=== PATIENT | male | born 1995 | race Caucasian/White ===

== ENCOUNTER 2018-12-17 04:49 | Emergency (ER) | payer OTHER ==
[2018-12-17] MEDS ORDERED: NAPROXEN 250 MG TABLET PO STA (05:13)
--- NOTE | 2018-12-17 05:14 | ED Physician Documentation ---
PD HPI FOCAL NEURO - Stated complaint Stated Complaint: NUMBNESS/TINGLING L LEG - Chief complaint Chief Complaint: Ext Problem - History obtained from History obtained from: Patient - History of Present Illness Timing - onset: How many hours ago (noted several hours ago - having numbness in back of left thigh. No noted injury. He had been working out as usual earlier in the evening which does include weight training and also bicycle and elliptical for cardiovascular. He states he did not work out any different than usual. He denied any back pain. He was [place] in [place] and noted onset of feeling his heart rate going fast and then feeling short of breath. He felt like the numbness in his back of his thigh worsened at that point and he got concerned and called EMS. En route he says his heart rate is doing better and he is not having any trouble breathing. He still has the numbness feeling in the back of the left thigh only.) Timing - duration: Hours Timing - details: Abrupt onset, Still present Severity of deficit: Mild Weakness: No: Arm, Leg Numbness: Leg (posterior upper thigh only), Left. No: Face, Arm Associated symptoms: Other (feeling of heart racing and dyspnea about an hour [employer]. Noted left posterior thigh numbness without provocation/injury to the area. Had been working out earlier without change in exercises nor any notable inury. He does do stationary bicycle and eliptical machines.). No: Headache, Nausea / vomiting Review of Systems Constitutional: denies: Fever, Chills Nose: denies: Rhinorrhea / runny nose, Congestion Throat: denies: Sore throat Cardiac: reports: Palpitations. denies: Chest pain / pressure Respiratory: denies: Cough GI: denies: Abdominal Pain, Nausea, Vomiting, Diarrhea Skin: denies: Rash, Lesions Musculoskeletal: denies: Back pain PD PAST MEDICAL HISTORY - Past Medical History Cardiovascular: None Respiratory: None Neuro: None Endocrine/Autoimmune: None - Present Medications Home Medications: Ambulatory Orders Medication Instructions Recorded Confirmed Naproxen 500 mg PO BID #20 tablet 12/17/18 - Allergies Allergies/Adverse Reactions: Allergies Allergy/AdvReac Type Severity Reaction Status Date / Time No Known Drug Allergies Allergy Verified 12/17/18 05:02 PD ED PE NORMAL - Vitals Vital signs reviewed: Yes - General General: Alert and oriented X 3, No acute distress, Well developed/nourished - HEENT HEENT: Moist mucous membranes, Pharynx benign - Neck Neck: Supple, no meningeal sign, No adenopathy - Cardiac Cardiac: RRR, No murmur - Respiratory Respiratory: Clear bilaterally - Abdomen Abdomen: Soft, Non tender - Back Back: No CVA TTP, No spinal TTP - Derm Derm: Normal color, Warm and dry, No rash - Extremities Extremities: Normal ROM s pain, No edema, No calf tenderness / cord - Neuro Neuro: Alert and oriented X 3, No motor deficit, Normal speech, Other (There is decreased sensation to light touch and pinprick but not to deep pressure in the posterior aspect of the upper thigh. He does not have any tenderness at the ischio ramus. There is no tenderness at the SI joint nor in the back. He has good motor exam of the leg. He has good pulses color and capillary refill. There is no swelling nor tenderness in the calf or popliteal area. The right thigh is normal.) Results - Vitals Vitals: Vital Signs - 24 hr 12/17/18 05:02 Temperature 36.8 C Heart Rate 81 Respiratory 18 Rate Blood Pressure 164/95 H O2 Saturation 100 Oxygen O2 Source Room air - Labs Labs: Laboratory Tests 12/17/18 12/17/18 05:30 05:30 WBC 7.6 RBC 4.68 L Hgb 14.3 Hct 42.7 MCV 91.2 MCH 30.5 MCHC 33.5 RDW 12.8 Plt Count 263 MPV 9.3 Neut # (Auto) 3.4 Lymph # (Auto) 3.2 [place] # (Auto) 0.9 Eos # (Auto) 0.0 Baso # (Auto) 0.0 Absolute Nucleated RBC 0.01 Nucleated RBC % 0.1 Sodium 140 Potassium 3.6 Chloride 105 Carbon Dioxide 28 Anion Gap 7.0 BUN 12 Creatinine 1.0 Estimated GFR (MDRD) 92 Glucose 130 H Calcium 9.2 Magnesium 1.9 Total Bilirubin 0.6 AST 23 ALT 15 Alkaline Phosphatase 89 Total Creatine Kinase 121 Total Protein 7.6 Albumin 4.1 Globulin 3.5 Albumin/Globulin Ratio 1.2 Lipase 30 PD MEDICAL DECISION MAKING - ED course Complexity details: considered differential (The numbness in the area of the back of the thigh seems likely to be us local nerve irritation. He is not tender at the issue ramus. He does work on elliptical and exercise bike and had done so earlier today. I presume he may have just some pressure of the nerve. It does not sound radicular without any back pain or radiation of it down lower in the leg. The chest pain and dyspnea he had otherwise sound likely panic or anxiety. Basic labs and EKG are okay.), d/w patient Departure - Departure Disposition: 01 Home, Self Care Clinical Impression: Thigh numbness Condition: Stable Record reviewed to determine appropriate education?: Yes Prescriptions: Naproxen 500 mg PO BID #20 tablet Comments: Your EKG and heart rhythm are normal. Your basic electrolytes and blood count are good. The numb area in the back of the thigh I presume is a local nerve irritation and should improve with time. Consider some anti-inflammatory such as naproxen twice daily for the next several days. Recheck if not improved over the next several days or so.
[2018-12-17 05:38] LABS: BASOPHILS % (AUTO) 0.6 %; EOSINOPHILS % (AUTO) 0.6 %; HGB - HEMOGLOBIN 14.3 g/dL (14.0-18.0); LYMPHOCYTES # (AUTO) 3.2 10^3/uL (1.5-3.5); LYMPHOCYTES % (AUTO) 42.2 %; MEAN CORPUSCULAR HEMOGLOBIN 30.5 pg (27.0-31.0); MEAN CORPUSCULAR HGB CONC 33.5 g/dL (32.0-36.0); MEAN CORPUSCULAR VOLUME 91.2 fL (80.0-94.0); MEAN PLATELET VOLUME 9.3 fL (7.4-11.4); MONOCYTES # (AUTO) 0.9 10^3/uL (0.0-1.0); NEUTROPHILS # (AUTO) 3.4 10^3/uL (1.5-6.6); NEUTROPHILS % (AUTO) 44.6 %; PLT - PLATELET COUNT 263 10^3/uL (130-450); RED BLOOD COUNT 4.68 10^6/uL (4.70-6.10); RED CELL DISTRIBUTION WIDTH 12.8 % (12.0-15.0); WHITE BLOOD COUNT 7.6 x10^3/uL (4.8-10.8)
[2018-12-17 05:50] LABS: ALBUMIN 4.1 g/dL (3.2-5.5); ALBUMIN/GLOBULIN RATIO 1.2 (1.0-2.2); BILIRUBIN,TOTAL 0.6 mg/dL (0.2-1.0); CALCIUM 9.2 mg/dL (8.5-10.3); MAGNESIUM 1.9 mg/dL (1.7-2.8); TOTAL PROTEIN 7.6 g/dL (6.7-8.2)
[2018-12-17 06:07] VITALS: BP 126/60
== END 2018-12-17 06:06 | disposition home or self-care (01) ==
LOC: ED 04:49
DX: R20.0 Anesthesia of skin (principal)
CPT/HCPCS: 36415; 80053; 82550; 83690; 83735; 85025; 93005; 99283; A9270

== ENCOUNTER 2019-05-23 05:22 | Emergency (ER) | payer OTHER ==
[2019-05-23] MEDS ORDERED: ASPIRIN CHEW 81 MG TABLET PO STA (05:45)
--- NOTE | 2019-05-23 05:48 | ED Physician Documentation ---
History of Present Illness - Stated complaint Stated Complaint: TIGHT CHEST/JAW - Chief complaint Chief Complaint: Cardiac - Additonal information Additional information: This is a 23-year-old male with a history of panic attacks, who presents with chest pain. Patient states he began having chest pain which is over his left chest at around 3 AM as he was going to bed, this radiated towards his left arm and up to his left jaw. It became moderate in severity, and now it is fading back down to mild in severity. He has had similar chest pain and was diagnosed with panic attacks in the past, but this is more persistent and more severe than in the past. He denies any leg swelling or redness, no history of blood clots. No cough, no fever, no hemoptysis. He did vomit once. He denies any known cardiac problems. No history of hypertension or diabetes. Review of Systems Constitutional: denies: Fever Nose: denies: Rhinorrhea / runny nose Cardiac: reports: Chest pain / pressure Respiratory: reports: Dyspnea. denies: Hemoptysis GI: reports: Vomiting. denies: Abdominal Pain : denies: Dysuria Skin: denies: Rash Neurologic: denies: Generalized weakness Psychiatric: reports: Anxiety Immunocompromised: denies: Immunocompromised PD PAST MEDICAL HISTORY - Past Medical History Past Medical History: Yes Cardiovascular: None Respiratory: None Neuro: None Endocrine/Autoimmune: None GI: None : None HEENT: None Psych: Anxiety Musculoskeletal: None Derm: None - Past Surgical History Past Surgical History: No - Present Medications Home Medications: Ambulatory Orders Medication Instructions Recorded Confirmed Naproxen 500 mg PO BID #20 tablet 12/17/18 - Allergies Allergies/Adverse Reactions: Allergies Allergy/AdvReac Type Severity Reaction Status Date / Time No Known Drug Allergies Allergy Verified 05/23/19 05:35 - Social History Does the pt smoke?: Yes Smoking Status: Current every day smoker Does the pt drink ETOH?: Yes Does the pt have substance abuse?: No - Immunizations Immunizations are current?: Yes - POLST Patient has POLST: No PD ED PE NORMAL - Vitals Vital signs reviewed: Yes - General General: Alert and oriented X 3, No acute distress - HEENT HEENT: PERRL - Neck Neck: Supple, no meningeal sign - Cardiac Cardiac: RRR, No murmur - Respiratory Respiratory: Clear bilaterally - Abdomen Abdomen: Normal bowel sounds, Soft, Non tender, Non distended - Derm Derm: Warm and dry - Extremities Extremities: No deformity - Neuro Neuro: Alert and oriented X 3 - Psych Psych: Normal mood, Normal affect Results - Vitals Vitals: Vital Signs - 24 hr 05/23/19 05/23/19 05/23/19 05:33 05:38 05:44 Temperature 36.7 C Heart Rate 73 68 64 Respiratory 17 16 18 Rate Blood Pressure 153/85 H 135/85 H O2 Saturation 100 99 97 05/23/19 05/23/19 06:25 06:46 Temperature Heart Rate 57 L 57 L Respiratory 16 16 Rate Blood Pressure 118/63 114/63 O2 Saturation 97 98 Oxygen O2 Source Room air - EKG (time done) 5:32 Other comments: Other comments (Rate 63, rhythm sinus, there is no ST segment elevation or depression, no abnormal T wave changes. [place] is within normal limits, intervals are unremarkable.) - Labs Labs: Laboratory Tests 05/23/19 05/23/19 05/23/19 05:50 05:50 05:50 WBC 7.7 RBC 4.33 L Hgb 13.2 L Hct 39.3 L MCV 90.8 MCH 30.5 MCHC 33.6 RDW 12.0 Plt Count 277 MPV 11.0 Neut # (Auto) 2.8 Lymph # (Auto) 3.9 H [place] # (Auto) 0.9 Eos # (Auto) 0.1 Baso # (Auto) 0.0 Absolute Nucleated RBC 0.00 Nucleated RBC % 0.0 Sodium 141 Potassium 3.6 Chloride 108 Carbon Dioxide 25 Anion Gap 8.0 BUN 15 Creatinine 0.8 Estimated GFR (MDRD) 119 Glucose 106 H Calcium 8.9 Total Bilirubin 0.4 AST 24 ALT 19 Alkaline Phosphatase 64 Troponin I High Sens 5.7 Total Protein 6.9 Albumin 4.0 Globulin 2.9 Albumin/Globulin Ratio 1.4 Lipase 28 - Rads (name of study) CXR Radiology: Other (No acute cardiopulmonary abnormality) PD MEDICAL DECISION MAKING - ED course Complexity details: considered differential (Anxiety, ACS, pneumonia, thorax, pleural effusion, musculoskeletal pain, pericarditis, myocarditis) ED course: On arrival patient is well-appearing, his exam is unremarkable. His vital signs are also unremarkable. EKG shows no signs of ischemia or dysrhythmia. Labs are unremarkable, he has a negative high-sensitivity troponin. It is now been over 3 hours since the onset of his symptoms, and he is extremely low risk for ACS (HEART SCORE = 2), I think a single high-sensitivity troponin is sufficient to day. His CXR is unremarkable. His symptoms have improved. No signs of pericarditis on his EKG, and his history is also inconsistent with pericarditis. I discussed the results of work-up with the patient, explaining that I do not see an emergent cause of his chest pain, and I am not certain what the cause is at this time. I recommended he follow closely with his primary care provider. If he develops any worsening pain or new symptoms he will return to the emergency department. Departure - Departure Disposition: 01 Home, Self Care Clinical Impression: Chest pain Qualifiers: Chest pain type: unspecified Qualified Code(s): R07.9 - Chest pain, unspecified Condition: Good Instructions: ED Chest Pain Atypical Unkn Cause Follow-Up: Your,PCP [Other] (For follow-up on symptoms within 1 week.) Comments: You were seen today for chest pain, your EKG and labs are reassuring, your chest x-ray does not show an obvious cause of your symptoms. You may take Tylenol ibuprofen for discomfort, please follow-up with your primary care provider as soon as possible. If you are developing worsening pain, shortness of breath, coughing up blood, or any other concerning symptoms please return to the emergency department. Discharge Date/Time: 05/23/19 06:47
[2019-05-23 06:01] LABS: BASOPHILS % (AUTO) 0.5 %; EOSINOPHILS # (AUTO) 0.1 10^3/uL (0.0-0.7); EOSINOPHILS % (AUTO) 1.3 %; HGB - HEMOGLOBIN 13.2 g/dL (14.0-18.0); LYMPHOCYTES # (AUTO) 3.9 10^3/uL (1.5-3.5); LYMPHOCYTES % (AUTO) 50.6 %; MEAN CORPUSCULAR HEMOGLOBIN 30.5 pg (27.0-31.0); MEAN CORPUSCULAR HGB CONC 33.6 g/dL (32.0-36.0); MEAN CORPUSCULAR VOLUME 90.8 fL (80.0-94.0); MONOCYTES # (AUTO) 0.9 10^3/uL (0.0-1.0); MONOCYTES % (AUTO) 11.1 %; NEUTROPHILS # (AUTO) 2.8 10^3/uL (1.5-6.6); NEUTROPHILS % (AUTO) 36.1 %; PLT - PLATELET COUNT 277 10^3/uL (130-450); RED BLOOD COUNT 4.33 10^6/uL (4.70-6.10); WHITE BLOOD COUNT 7.7 x10^3/uL (4.8-10.8)
[2019-05-23 06:12] LABS: ALBUMIN/GLOBULIN RATIO 1.4 (1.0-2.2); BILIRUBIN,TOTAL 0.4 mg/dL (0.2-1.0); CALCIUM 8.9 mg/dL (8.5-10.3); CREATININE 0.8 mg/dL (0.6-1.2); TOTAL PROTEIN 6.9 g/dL (6.7-8.2)
--- NOTE | 2019-05-23 06:28 | XRAY Report ---
Reason: Left sided chest pain Procedure Date: 05/23/2019 Accession Number: [id number] / [id number] Procedure: XR - Chest 2 View X-Ray CPT Code: 57042 FULL RESULT: EXAM: CHEST RADIOGRAPHY EXAM DATE: 05/23/2019 06:03 AM. CLINICAL HISTORY: Left sided chest pain. COMPARISON: None. TECHNIQUE: 2 views. FINDINGS: Lungs/Pleura: Small lung volume. No focal opacities evident. No pleural effusion. No pneumothorax. Normal volumes. Mediastinum: Heart and mediastinal contours are unremarkable. Other: None. IMPRESSION: Small lung volumes. No acute cardiopulmonary abnormality demonstrated. RADIA
[2019-05-23 06:47] VITALS: BP 114/63
== END 2019-05-23 06:47 | disposition home or self-care (01) ==
LOC: ED 05:22
DX: R07.9 Chest pain, unspecified (principal); F17.200 Nicotine dependence, unspecified, uncomplicated
CPT/HCPCS: 36415; 71046; 80053; 83690; 84484; 85025; 93005; 99284; A9270

== ENCOUNTER 2019-06-10 05:57 | Emergency (ER) | payer OTHER ==
--- NOTE | 2019-06-10 07:09 | ED Physician Documentation ---
History of Present Illness - Stated complaint Stated Complaint: PANIC ATTACKS/ SWOLLEN THROAT - Chief complaint Chief Complaint: MHE - Additonal information Additional information: This is a 23M with a history of possible PTSD, who presents with panic attacks. Patient states that he has had episodes described as panic attacks for several months. He typically will feel some tingling down his left arm, that his heart is racing, and severe anxiety. This occurred today around 2 AM after he got up to use the bathroom and saw that his urine was slightly cloudy. He denies any dysuria or hematuria. He states his urine was pale clear to light yellow, and slightly turbid. He denies any abdominal pain nausea, or concern for STI. Something about seeing his urine being cloudy triggered a panic attack in him and he has had continued anxiety until his visit this morning. He denies any chest pain or shortness of breath. He does have a mild sore throat, no fever. Review of Systems Constitutional: denies: Fever Cardiac: denies: Chest pain / pressure GI: reports: Nausea : denies: Dysuria Psychiatric: reports: Anxiety PD PAST MEDICAL HISTORY - Past Medical History Past Medical History: Yes Cardiovascular: None Respiratory: None Neuro: None Endocrine/Autoimmune: None GI: None : None HEENT: None Psych: Anxiety, Panic attacks Musculoskeletal: None Derm: None - Past Surgical History Past Surgical History: Yes - Present Medications Home Medications: Ambulatory Orders Medication Instructions Recorded Confirmed hydrOXYzine pamoate [Hydroxyzine 25 mg PO BID PRN #12 capsule 06/10/19 Pamoate] - Allergies Allergies/Adverse Reactions: Allergies Allergy/AdvReac Type Severity Reaction Status Date / Time No Known Drug Allergies Allergy Verified 06/10/19 06:06 - Social History Does the pt smoke?: Yes Smoking Status: Current every day smoker Does the pt drink ETOH?: Yes Does the pt have substance abuse?: No - Immunizations Immunizations are current?: Yes - POLST Patient has POLST: No PD ED PE NORMAL - Vitals Vital signs reviewed: Yes - General General: Alert and oriented X 3 - HEENT HEENT: Other (Mild posterior pharynx erythema) - Neck Neck: Supple, no meningeal sign - Cardiac Cardiac: RRR, No murmur - Respiratory Respiratory: Clear bilaterally - Abdomen Abdomen: Soft, Non tender, Non distended - Derm Derm: Warm and dry - Extremities Extremities: No deformity - Neuro Neuro: Alert and oriented X 3, 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 Intervals within normal limits. [place] normal.) - Labs Labs: Laboratory Tests 06/10/19 06/10/19 06:53 06:54 Urine Color YELLOW Urine Clarity CLEAR Urine pH 6.5 Ur Specific [place] <=1.005 Urine Protein NEGATIVE Urine Glucose (UA) NEGATIVE Urine Ketones NEGATIVE Urine Occult Blood NEGATIVE Urine Nitrite NEGATIVE Urine Bilirubin NEGATIVE Urine Urobilinogen 0.2 (NORMAL) Ur Leukocyte Esterase NEGATIVE Ur Microscopic Review NOT INDICATED Urine Culture Comments NOT INDICATED Urine Opiates Screen NEGATIVE Ur Oxycodone Screen NEGATIVE Urine Methadone Screen NEGATIVE Ur Propoxyphene Screen NEGATIVE Ur Barbiturates Screen NEGATIVE Ur Tricyclics Screen NEGATIVE Ur Phencyclidine Scrn NEGATIVE Ur Amphetamine Screen NEGATIVE U Methamphetamines Scrn NEGATIVE U Benzodiazepines Scrn NEGATIVE Urine Cocaine Screen NEGATIVE U Cannabinoids Screen NEGATIVE Group A Strep Rapid Negative PD MEDICAL DECISION MAKING - ED course Complexity details: considered differential (dysrhythmia, panic attack, anxiety, PTSD, UTI, STI) ED course: On exam patient is mildly hypertensive, vital signs otherwise unremarkable. He is well-appearing and calm during my examination. UA negative for infection. Utox negative. Rapid strep negative, patient does have signs of mild pharyngitis that is likely viral. EKG is unremarkable. Patient symptoms have resolved. They are consistent with a stress reaction/panic attacks. I reviewed with him suggested follow-up, as well as strict return precautions, and symptoms that would be worrisome for another process. I prescribed him hydroxyzine to be used as only if relaxation techniques are not effective, and patient was discharged with follow-up plan with the mental health professional. He does have an appointment scheduled already, but will try to get this moved up sooner. Departure - Departure Disposition: 01 Home, Self Care Clinical Impression: Stress reaction Condition: Good Instructions: ED Stress React Follow-Up: Your,PCP [Other] Prescriptions: hydrOXYzine pamoate [Hydroxyzine Pamoate] 25 mg PO BID PRN #12 capsule PRN Reason: Anxiety Comments: You were seen today for a possible panic attack. Please follow up with your PCP and a mental health professional as soon as possible. If you have feelings of anxiety that are not controlled with deep breathing exercises/mindfulness, you may try the hydroxyzine which has been prescribed. This medication can be sedating, do not combine it with other sedating medications. If you develop new or worsening chest pain, shortness of breath, abdominal pain, or other concerning symptoms, return to the emergency department.
[2019-06-10 07:13] LABS: MUDS CUTOFF CONCENTRATIONS CUTOFF CONC BELOW:
[2019-06-10 07:15] LABS: BILIRUBIN,URINE NEGATIVE (NEGATIVE); GLUCOSE, URINE (UA) NEGATIVE (NEGATIVE); KETONES,URINE (UA) NEGATIVE (NEGATIVE); LEUKOCYTE ESTERASE, URINE NEGATIVE (NEGATIVE); NITRITE,URINE NEGATIVE (NEGATIVE); OCCULT BLOOD,URINE NEGATIVE (NEGATIVE); PH,URINE 6.5 PH (5.0-7.5); PROTEIN,URINE NEGATIVE (NEGATIVE); UROBILINOGEN,URINE 0.2 (NORMAL) E.U./dL (NORMAL)
[2019-06-10 07:22] LABS: CLARITY,URINE CLEAR (CLEAR)
[2019-06-10 07:25] LABS: AMPHETAMINE SCREEN,URINE NEGATIVE (NEGATIVE); BENZODIAZEPINES SCREEN, URINE NEGATIVE (NEGATIVE); COCAINE SCREEN URINE NEGATIVE (NEGATIVE); METHADONE SCREEN, URINE NEGATIVE (NEGATIVE); METHAMPHETAMINES SCREEN, URINE NEGATIVE (NEGATIVE); OPIATE SCREEN, URINE NEGATIVE (NEGATIVE); OXYCODONE SCREEN, URINE NEGATIVE (NEGATIVE); PROPOXYPHENE SCREEN, URINE NEGATIVE (NEGATIVE); TRICYCLIC ANTIDEPRESSANT,URINE NEGATIVE (NEGATIVE)
[2019-06-10 08:04] VITALS: BP 144/69
== END 2019-06-10 08:16 | disposition home or self-care (01) ==
LOC: ED 05:57
DX: F43.0 Acute stress reaction (principal); J02.9 Acute pharyngitis, unspecified; F17.200 Nicotine dependence, unspecified, uncomplicated
CPT/HCPCS: 80306; 81001; 81003; 87070; 87086; 87430; 93005; 99283

== ENCOUNTER 2019-06-11 07:34 | Outpatient (CLI) | payer OTHER | END 2019-06-11 07:35 | disposition critical access hospital (66) | LOC: EMS 07:34 | PROVIDERS: ATTEND Surgery | DX: R07.9 Chest pain, unspecified (principal); R20.0 Anesthesia of skin; R06.02 Shortness of breath | CPT/HCPCS: A0425; A0429 ==

== ENCOUNTER 2019-06-11 08:04 | Emergency (ER) | payer OTHER ==
--- NOTE | 2019-06-11 08:41 | ED Physician Documentation ---
History of Present Illness - Stated complaint Stated Complaint: CP/ SOA, ANXIETY - Chief complaint Chief Complaint: Cardiac - Additonal information Additional information: This is a 23-year-old male who is known to me, I saw the patient yesterday. Patient has had panic attacks for weeks, he states that they will occur intermittently when he is alone at home and wakes up from sleep. He has some tingling on his left side, and he sometimes has chest pain or feeling of palpitations. This morning several hours prior to arrival he began having tingling in his left arm and leg and some mild chest pain. This is resolved but he states that he feels like he is about to have another panic attack now. He denies shortness of breath, fever. He has had lab work including CMP, CBC, troponin in the past and these have been unrevealing. He denies depression, he denies any suicidal ideation, denies substance abuse. He had a negative U tox and UA on his last visit yesterday. Review of Systems Constitutional: denies: Fever Eyes: denies: Loss of vision Cardiac: reports: Chest pain / pressure Respiratory: denies: Dyspnea GI: denies: Abdominal Pain Neurologic: denies: Generalized weakness Psychiatric: reports: Anxiety PD PAST MEDICAL HISTORY - Past Medical History Cardiovascular: None Respiratory: None Neuro: None Endocrine/Autoimmune: None GI: None : None HEENT: None Psych: Anxiety, Panic attacks Musculoskeletal: None Derm: None - Past Surgical History Past Surgical History: Yes - Present Medications Home Medications: Ambulatory Orders Medication Instructions Recorded Confirmed hydrOXYzine pamoate [Hydroxyzine 25 mg PO BID PRN #12 capsule 06/10/19 Pamoate] - Allergies Allergies/Adverse Reactions: Allergies Allergy/AdvReac Type Severity Reaction Status Date / Time No Known Drug Allergies Allergy Verified 06/10/19 06:06 - Social History Does the pt smoke?: Yes Smoking Status: Current every day smoker Does the pt drink ETOH?: Yes Does the pt have substance abuse?: No - Immunizations Immunizations are current?: Yes - POLST Patient has POLST: No PD ED PE NORMAL - Vitals Vital signs reviewed: Yes - General General: Alert and oriented X 3, No acute distress - HEENT HEENT: PERRL - Neck Neck: Supple, no meningeal sign - Cardiac Cardiac: RRR, No murmur - Respiratory Respiratory: Clear bilaterally - Abdomen Abdomen: Soft, Non distended - Derm Derm: Warm and dry - Extremities Extremities: No deformity - Neuro Neuro: Alert and oriented X 3, 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, No motor deficit, No sensory deficit, Normal speech - Psych Psych: Normal mood, Normal affect Results - Vitals Vitals: Vital Signs - 24 hr 06/11/19 06/11/19 06/11/19 08:05 08:17 09:00 Temperature 36.3 C L 36.3 C L Heart Rate 61 57 L 61 Respiratory 16 16 16 Rate Blood Pressure 140/76 H 140/76 H 112/69 O2 Saturation 97 98 97 06/11/19 06/11/19 09:54 09:57 Temperature 36.7 C Heart Rate 84 58 L Respiratory 16 16 Rate Blood Pressure 128/76 125/73 O2 Saturation 96 98 Oxygen O2 Source Room air - EKG (time done) 8:24 Other comments: Other comments (Rate 56, rhythm sinus, there is no ST segment elevation or depression, no abnormal T wave inversions, intervals are within normal limits, QTC 387.) - Labs Labs: Laboratory Tests 06/11/19 06/11/19 08:50 08:50 Sodium 140 Potassium 3.5 Chloride 108 Carbon Dioxide 23 Anion Gap 9.0 BUN 12 Creatinine 0.8 Estimated GFR (MDRD) 119 Glucose 96 Calcium 9.3 TSH 1.51 PD MEDICAL DECISION MAKING - ED course Complexity details: considered differential (Thyroid disturbance, electrolyte abnormality, panic attack, stress reaction, ACS, dysrhythmia) ED course: Patient presents with a recurrent of stress/panic attack symptoms. Past work-ups including CBC, electrolytes, troponin, EKGs, UA, urine drug screen, have been unrevealing for another cause of his symptoms. EKG today is unremarkable and unchanged from prior. Given his age, risk factors, and EKG, ACS extremely unlikely. TSH is within normal limits, electrolytes are unremarkable today. His neuro exam is normal with no signs of deficit, and his paresthesias have resolved at this time. He tried 1 dose of hydroxyzine, he did have some improvement with this. I consulted social work in an attempt to get him more urgent follow-up, given his return to the emergency department multiple times for this problem and [place]. [place] precautions were reviewed with the patient, as well as calling again today to attempt to arrange mental health follow up, he agreed with this plan and he was discharged home. Departure - Departure Disposition: 01 Home, Self Care Clinical Impression: Paresthesia, Anxiety Condition: Good Comments: You were seen today for tingling on your left side as well as some chest discomfort, your labs and EKG are reassuring today. It does sound like you may be having panic attacks. You may try the hydroxizine prescribed yesterday, and please call the base today to discuss your multiple emergency department visits and the need for prompt follow-up with them. If you develop new or worsening symptoms such as increasing chest pain, shortness of breath, or other concerning symptoms please return to the emergency department. Discharge Date/Time: 06/11/19 10:13
[2019-06-11] MEDS ORDERED: hydrOXYzine PAMOATE 25 MG CAPSULE PO STA (09:24)
[2019-06-11 09:29] LABS: CALCIUM 9.3 mg/dL (8.5-10.3); CREATININE 0.8 mg/dL (0.6-1.2)
[2019-06-11 09:58] VITALS: BP 125/73
== END 2019-06-11 10:13 | disposition home or self-care (01) ==
LOC: EDUNIT# → ED 08:04
DX: F41.9 Anxiety disorder, unspecified (principal); R20.2 Paresthesia of skin; R07.9 Chest pain, unspecified; F17.200 Nicotine dependence, unspecified, uncomplicated
CPT/HCPCS: 36415; 80048; 84443; 93005; 99283; A9270

== ENCOUNTER 2019-08-04 15:37 | Emergency (ER) | payer OTHER ==
[2019-08-04 16:31] LABS: BASOPHILS % (AUTO) 0.3 %; EOSINOPHILS % (AUTO) 0.2 %; HGB - HEMOGLOBIN 14.3 g/dL (14.0-18.0); LYMPHOCYTES # (AUTO) 2.1 10^3/uL (1.5-3.5); LYMPHOCYTES % (AUTO) 18.3 %; MEAN CORPUSCULAR HEMOGLOBIN 29.8 pg (27.0-31.0); MEAN CORPUSCULAR HGB CONC 32.9 g/dL (32.0-36.0); MEAN CORPUSCULAR VOLUME 90.6 fL (80.0-94.0); MONOCYTES # (AUTO) 0.7 10^3/uL (0.0-1.0); MONOCYTES % (AUTO) 6.2 %; NEUTROPHILS # (AUTO) 8.7 10^3/uL (1.5-6.6); NEUTROPHILS % (AUTO) 74.6 %; PLT - PLATELET COUNT 302 10^3/uL (130-450); RED CELL DISTRIBUTION WIDTH 12.3 % (12.0-15.0); WHITE BLOOD COUNT 11.6 x10^3/uL (4.8-10.8)
[2019-08-04 16:42] LABS: ALBUMIN 4.3 g/dL (3.2-5.5); ALBUMIN/GLOBULIN RATIO 1.2 (1.0-2.2); BILIRUBIN,TOTAL 0.9 mg/dL (0.2-1.0); CALCIUM 9.3 mg/dL (8.5-10.3); CREATININE 0.8 mg/dL (0.6-1.2); TOTAL PROTEIN 7.8 g/dL (6.7-8.2)
[2019-08-04 16:59] LABS: BILIRUBIN,URINE NEGATIVE (NEGATIVE); GLUCOSE, URINE (UA) NEGATIVE (NEGATIVE); KETONES,URINE (UA) NEGATIVE (NEGATIVE); LEUKOCYTE ESTERASE, URINE NEGATIVE (NEGATIVE); NITRITE,URINE NEGATIVE (NEGATIVE); OCCULT BLOOD,URINE NEGATIVE (NEGATIVE); PROTEIN,URINE NEGATIVE (NEGATIVE); UROBILINOGEN,URINE 0.2 (NORMAL) E.U./dL (NORMAL)
[2019-08-04 17:05] LABS: CLARITY,URINE CLEAR (CLEAR)
[2019-08-04] MEDS ORDERED: DICYCLOMINE 10 MG CAPSULE PO STA (17:32)
[2019-08-04] MEDS ORDERED: ONDANSETRON ODT 4 MG TABLET TL STA (17:32)
[2019-08-04] MEDS ORDERED: LIDOCAINE VISCOUS 2% 15 ML UDC MM STA (17:33)
[2019-08-04] MEDS ORDERED: MAG HYDROX/AL HYDROX/SIMETH 30 ML UDC PO STA (17:33)
[2019-08-04 18:42] VITALS: BP 124/71
--- NOTE | 2019-08-04 18:48 | ED Physician Documentation ---
PD HPI ABD PAIN - Stated complaint Stated Complaint: AB PX - Chief complaint Chief Complaint: Abd Pain - History obtained from History obtained from: Patient - History of Present Illness Timing - onset: Yesterday Timing - duration: Days (1) Timing - details: Abrupt onset Severity Comments: moderate Quality: Aching, Pain, Other (diffusely but mainly upper abdomen) Location: All over / everywhere, Epigastric Improved by: Other (nothing) Worsened by: Eating Associated symptoms: Nausea, Vomiting, Hematemesis. No: Fever, Diarrhea, Melena, Hematochezia, Dysuria, Hematuria, Near syncope / syncope Similar symptoms before: Has not had sx before Recently seen: Not recently seen - Treatment prior to arrival Treatment prior to arrival: none Review of Systems Ten Systems: 10 systems reviewed and negative Constitutional: denies: Fever Cardiac: reports: Reviewed and negative Respiratory: reports: Reviewed and negative GI: reports: Abdominal Pain, Nausea, Vomiting, Hematemesis. denies: Abdominal Swelling, Constipation, Diarrhea, Bloody / black stool : reports: Reviewed and negative Skin: reports: Reviewed and negative Neurologic: reports: Reviewed and negative Psychiatric: reports: Reviewed and negative Endocrine: reports: Reviewed and negative Immunocompromised: reports: Reviewed and negative PD PAST MEDICAL HISTORY - Past Medical History Cardiovascular: None Respiratory: None Neuro: None Endocrine/Autoimmune: None GI: None : None HEENT: None Psych: Anxiety, Panic attacks Musculoskeletal: None Derm: None - Past Surgical History Past Surgical History: Yes - Present Medications Home Medications: Ambulatory Orders Medication Instructions Recorded Confirmed hydrOXYzine pamoate [Hydroxyzine 25 mg PO BID PRN #12 capsule 06/10/19 Pamoate] Ondansetron Odt [Zofran] 4 mg TL Q6H PRN #10 tablet 08/04/19 Pantoprazole [Protonix] 40 mg PO DAILY PRN #14 tablet 08/04/19 oxyCODONE [Roxicodone] 5 mg PO Q4H PRN #14 tablet 08/06/19 - Allergies Allergies/Adverse Reactions: Allergies Allergy/AdvReac Type Severity Reaction Status Date / Time No Known Drug Allergies Allergy Verified 08/05/19 22:55 - Social History Does the pt smoke?: Yes Smoking Status: Current every day smoker Does the pt drink ETOH?: Yes Does the pt have substance abuse?: No - Immunizations Immunizations are current?: Yes - POLST Patient has POLST: No PD ED PE NORMAL - Vitals Vital signs reviewed: Yes - General General: Alert and oriented X 3, No acute distress, Well developed/nourished - HEENT HEENT: Atraumatic, Moist mucous membranes, Pharynx benign - Neck Neck: Supple, no meningeal sign, No JVD - Cardiac Cardiac: RRR, No murmur, No gallop, No rub - Respiratory Respiratory: No respiratory distress, Clear bilaterally - Abdomen Abdomen: Normal bowel sounds, Soft, Non tender, Non distended - Male Male : Deferred - Rectal Rectal: Deferred - Derm Derm: Normal color, Warm and dry, No rash - Extremities Extremities: No deformity, No edema - Neuro Neuro: Alert and oriented X 3, No motor deficit, No sensory deficit Eye Opening: Spontaneous Motor: Obeys Commands Verbal: Oriented GCS Score: 15 - Psych Psych: Other (flat affect, anxious appearing ) PD ED PE EXPANDED - Abdomen Abdomen: Other (negative murphys sign, no tenderness at Mcburney's point ) Results - Vitals Vitals: Oxygen O2 Source Room air - Labs Labs: Laboratory Tests 08/04/19 08/04/19 08/04/19 16:25 16:25 16:48 WBC 11.6 H RBC 4.80 Hgb 14.3 Hct 43.5 MCV 90.6 MCH 29.8 MCHC 32.9 RDW 12.3 Plt Count 302 MPV 11.0 Neut # (Auto) 8.7 H Lymph # (Auto) 2.1 [place] # (Auto) 0.7 Eos # (Auto) 0.0 Baso # (Auto) 0.0 Absolute Nucleated RBC 0.00 Nucleated RBC % 0.0 Sodium 140 Potassium 4.1 Chloride 105 Carbon Dioxide 27 Anion Gap 8.0 BUN 14 Creatinine 0.8 Estimated GFR (MDRD) 118 Glucose 107 H Calcium 9.3 Total Bilirubin 0.9 AST 17 ALT 17 Alkaline Phosphatase 79 Total Protein 7.8 Albumin 4.3 Globulin 3.5 Albumin/Globulin Ratio 1.2 Lipase 28 Urine Color YELLOW Urine Clarity CLEAR Urine pH 6.0 Ur Specific [place] 1.025 Urine Protein NEGATIVE Urine Glucose (UA) NEGATIVE Urine Ketones NEGATIVE Urine Occult Blood NEGATIVE Urine Nitrite NEGATIVE Urine Bilirubin NEGATIVE Urine Urobilinogen 0.2 (NORMAL) Ur Leukocyte Esterase NEGATIVE Ur Microscopic Review NOT INDICATED Urine Culture Comments NOT INDICATED negative UA, negative lipase, normal lfts, very mild leukocytosis PD MEDICAL DECISION MAKING - ED course Complexity details: reviewed results, re-evaluated patient, considered differential, d/w patient ED course: ddx- biliary colic/disease, cholelithiasis, cholecystitis, pancreatitis, gastritis, gastroenteritis, food poisoning, PUD, appendicitis. 24 y/o M with hx and examination as documented, well appearing but anxious, afebrile, normal vital signs Reports vomiting some blood streaked vomit - blatchford score 0 here thus doubt significant gi bleeding, this may be due to a rod sierra tear. He has no abdominal tenderness or distension. He has not vomited in the ED. His labs and urine are normal except a very mildly elevated wbc likely due to vomiting. Discussed results with pt and he was given antiemetics, gi cocktail with minimal relief. That being said in the setting of a nontender abdomen and normal labs, pt tolerating PO, and epigastric pain his symptoms are more consistent with gastritis and so the utility of imaging is very limited. Thus, I do not feel that emergent imaging is indicated at this time. I discussed this with the pt. He was given return precautions if worsening pain, fever, vomiting or if pain migraines to the RLQ as this still may be an early appendicitis Departure - Departure Disposition: 01 Home, Self Care Clinical Impression: Gastritis Qualifiers: Gastritis type: unspecified gastritis Chronicity: acute Gastritis bleeding: without bleeding Qualified Code(s): K29.00 - Acute gastritis without bleeding Condition: Stable Record reviewed to determine appropriate education?: Yes Instructions: ED PUD Vs Gastritis Follow-Up: Wade Vargas MD [Primary Care Provider] - Within 3 Days (recheck your symptoms ) Prescriptions: Ondansetron Odt [Zofran] 4 mg TL Q6H PRN #10 tablet PRN Reason: Nausea / Vomiting Pantoprazole [Protonix] 40 mg PO DAILY PRN #14 tablet PRN Reason: Pain Comments: You were evaluated in the ED today for abdominal pain, nausea and an episode of blood in your stool. Your examination is associated with upper abdominal pain. Your labs, lipase, liver function tests and urine tests were negative. You have a mildly elevated white blood cell count which often happens after vomiting. I suspect you have gastritis or peptic ulcer disease. Take the prescribed pantoprazole for pain. You can take zofran as needed for nausea as well. You need to follow up with your doctor if symptoms persist. If pain worsens, becomes severe or you have a fever or pain localizing to the Right lower quadrant of your abdomen you should return to the ED. Discharge Date/Time: 08/04/19 18:52
== END 2019-08-04 18:52 | disposition home or self-care (01) ==
LOC: ED 15:37
DX: K29.00 Acute gastritis without bleeding (principal); F17.200 Nicotine dependence, unspecified, uncomplicated
CPT/HCPCS: 36415; 80053; 81003; 83690; 85025; 99283; 99284; A9270; Q0162; 81001; 87086

== ENCOUNTER 2019-08-05 22:26 | Day surgery (SDC) | payer OTHER ==
--- NOTE | 2019-08-05 23:33 | ED Physician Documentation ---
History of Present Illness - Stated complaint Stated Complaint: RT SIDED ABD PX - Chief complaint Chief Complaint: Abd Pain - Additonal information Additional information: This is a 24-year-old male with history of anxiety, who is presenting today with right lower quadrant abdominal pain. He states that he had some nausea 2 days ago, initially had some more generalized or upper abdominal pain, he presented to the emergency department where his work-up showed a nonspecific mild leukocytosis, and had an ultrasound which was unremarkable. He was told to come back if his pain worsened or if went towards his right lower quadrant, and he states that his pain has gravitated towards his right lower quadrant and now he is tender to the touch there. He denies any dysuria, penile lesions, or scrotal pain at this time. He has never had any abdominal surgeries, he still has his appendix. Review of Systems Constitutional: denies: Fever Nose: denies: Rhinorrhea / runny nose Throat: denies: Dental pain / toothache Cardiac: denies: Chest pain / pressure Respiratory: denies: Dyspnea GI: reports: Abdominal Pain : denies: Dysuria Skin: denies: Rash Neurologic: denies: Generalized weakness Immunocompromised: denies: Immunocompromised PD PAST MEDICAL HISTORY - Past Medical History Past Medical History: Yes Cardiovascular: None Respiratory: None Neuro: None Endocrine/Autoimmune: None GI: None : None HEENT: None Psych: Anxiety, Panic attacks Musculoskeletal: None Derm: None - Past Surgical History Past Surgical History: Yes - Present Medications Home Medications: Ambulatory Orders Medication Instructions Recorded Confirmed hydrOXYzine pamoate [Hydroxyzine 25 mg PO BID PRN #12 capsule 06/10/19 Pamoate] Ondansetron Odt [Zofran] 4 mg TL Q6H PRN #10 tablet 08/04/19 Pantoprazole [Protonix] 40 mg PO DAILY PRN #14 tablet 08/04/19 oxyCODONE [Roxicodone] 5 mg PO Q4H PRN #14 tablet 08/06/19 - Allergies Allergies/Adverse Reactions: Allergies Allergy/AdvReac Type Severity Reaction Status Date / Time No Known Drug Allergies Allergy Verified 08/05/19 22:55 - Social History Does the pt smoke?: No Smoking Status: Never smoker Does the pt drink ETOH?: Yes Does the pt have substance abuse?: No - Immunizations Immunizations are current?: Yes - POLST Patient has POLST: No PD ED PE NORMAL - Vitals Vital signs reviewed: Yes - General General: Alert and oriented X 3, No acute distress - HEENT HEENT: PERRL - Neck Neck: Supple, no meningeal sign - Cardiac Cardiac: RRR, No murmur - Respiratory Respiratory: Clear bilaterally - Abdomen Abdomen: Normal bowel sounds, Soft, Non distended, Other (There is tenderness in the right lower quadrant to palpation, no guarding. Remainder of the abdomen is nontender to palpation.) - Male Male : Other (No hernias, no lesions, no scrotal skin changes.) - Derm Derm: Warm and dry - Extremities Extremities: No deformity - Neuro Neuro: Alert and oriented X 3 - Psych Psych: Normal mood, Normal affect Results - Vitals Vitals: Vital Signs - 24 hr 08/05/19 08/06/19 08/06/19 22:52 00:20 00:22 Temperature 36.9 C Heart Rate 72 57 L 56 L Respiratory 18 16 16 Rate Blood Pressure 141/80 H 132/75 H O2 Saturation 100 100 100 08/06/19 08/06/19 08/06/19 00:38 00:45 01:01 Temperature Heart Rate 58 L 56 L Respiratory 16 17 16 Rate Blood Pressure 124/77 O2 Saturation 100 100 08/06/19 08/06/19 08/06/19 01:02 01:24 01:43 Temperature 37.1 C Heart Rate 95 Respiratory 17 16 Rate Blood Pressure 153/75 H O2 Saturation 100 08/06/19 08/06/19 08/06/19 01:44 02:09 02:33 Temperature Heart Rate 74 Respiratory 17 17 Rate Blood Pressure 140/87 H 132/77 H O2 Saturation 100 08/06/19 08/06/19 08/06/19 03:27 05:12 05:58 Temperature Heart Rate 63 58 L 56 L Respiratory 15 15 16 Rate Blood Pressure 129/73 123/73 127/73 O2 Saturation 98 97 100 08/06/19 08/06/19 08/06/19 07:13 07:15 07:20 Temperature 36.7 C 36.6 C 36.6 C Heart Rate 86 73 71 Respiratory 19 19 20 Rate Blood Pressure 160/95 H 144/88 H 151/77 H O2 Saturation 96 96 98 08/06/19 08/06/19 08/06/19 07:25 07:30 07:35 Temperature 36.6 C 36.7 C 36.7 C Heart Rate 70 68 74 Respiratory 16 12 14 Rate Blood Pressure 160/87 H 155/84 H 155/84 H O2 Saturation 99 98 96 08/06/19 08/06/19 08/06/19 07:40 07:45 07:50 Temperature 36.7 C 36.8 C 36.8 C Heart Rate 73 74 70 Respiratory 16 17 18 Rate Blood Pressure 140/90 H 150/82 H 150/90 H O2 Saturation 96 97 97 08/06/19 08/06/19 08:00 08:36 Temperature 36.8 C 36.6 C Heart Rate 63 72 Respiratory 17 17 Rate Blood Pressure 151/81 H 139/89 H O2 Saturation 94 97 Oxygen O2 Source Room air - Labs Labs: Laboratory Tests 08/06/19 08/06/19 08/06/19 00:10 00:10 00:45 WBC 10.0 RBC 4.47 L Hgb 14.0 Hct 40.9 L MCV 91.5 MCH 31.3 H MCHC 34.2 RDW 11.9 L Plt Count 279 MPV 10.9 Neut # (Auto) 5.0 Lymph # (Auto) 4.0 H [place] # (Auto) 0.9 Eos # (Auto) 0.1 Baso # (Auto) 0.1 Absolute Nucleated RBC 0.00 Nucleated RBC % 0.0 Sodium 135 Potassium 3.8 Chloride 102 Carbon Dioxide 27 Anion Gap 6.0 BUN 17 Creatinine 1.0 Estimated GFR (MDRD) 91 Glucose 102 H Calcium 9.2 Total Bilirubin 0.9 AST 18 ALT 14 Alkaline Phosphatase 80 Total Protein 7.9 Albumin 4.3 Globulin 3.6 Albumin/Globulin Ratio 1.2 Lipase 29 Urine Color YELLOW Urine Clarity CLEAR Urine pH 6.5 Ur Specific [place] 1.015 Urine Protein NEGATIVE Urine Glucose (UA) NEGATIVE Urine Ketones NEGATIVE Urine Occult Blood NEGATIVE Urine Nitrite NEGATIVE Urine Bilirubin NEGATIVE Urine Urobilinogen 0.2 (NORMAL) Ur Leukocyte Esterase NEGATIVE Ur Microscopic Review NOT INDICATED Urine Culture Comments NOT INDICATED - Rads (name of study) CT abd/pelvis W Radiology: Other (Acute appendicitis without rupture or abscess) PD MEDICAL DECISION MAKING - ED course Complexity details: considered differential (Appendicitis, cystitis, colitis, constipation, hernia, Testicular torsion) ED course: On initial examination patient is well-appearing, vital signs are unremarkable, he does have some baseline mild bradycardia. He has focal right lower quadrant tenderness, and given his history I am concerned for appendicitis. He has no signs of torsion or genitourinary pathology at this time. Labs are unremarkable, CT scan shows acute uncomplicated appendicitis. He is given a dose of Zosyn here in the emergency department, I spoke with Dr. Goel of surgery who will take him for appendectomy at 6AM. He was made n.p.o., started on maintenance fluids, and his symptoms were controlled with Zofran and morphine. There were no acute events during the night and he was taken to the OR in the morning. Departure - Departure Disposition: ED Transfer to [facility] Clinical Impression: Acute appendicitis Qualifiers: Acute appendicitis type: with localized peritonitis Appendicitis gangrene presence: without gangrene Appendicitis perforation presence: without perforation Appendicitis abscess presence: without abscess Qualified Code(s): K35.30 - Acute appendicitis with localized peritonitis, without perforation or gangrene Condition: Good Discharge Date/Time: 08/06/19 06:05
[2019-08-05] MEDS ORDERED: ONDANSETRON 4 MG/2 ML VIAL IVP STA (23:41)
[2019-08-05] MEDS ORDERED: SODIUM CHLORIDE 0.9% 1,000 ML IV ONE (23:41)
[2019-08-06] MEDS ORDERED: IOVERSOL 320 100 ML VIAL IVP ONE ×2 (00:17→01:02)
[2019-08-06 00:30] LABS: BASOPHILS # (AUTO) 0.1 10^3/uL (0.0-0.1); BASOPHILS % (AUTO) 0.6 %; EOSINOPHILS # (AUTO) 0.1 10^3/uL (0.0-0.7); EOSINOPHILS % (AUTO) 0.6 %; LYMPHOCYTES % (AUTO) 39.6 %; MEAN CORPUSCULAR HEMOGLOBIN 31.3 pg (27.0-31.0); MEAN CORPUSCULAR HGB CONC 34.2 g/dL (32.0-36.0); MEAN CORPUSCULAR VOLUME 91.5 fL (80.0-94.0); MEAN PLATELET VOLUME 10.9 fL (7.4-11.4); MONOCYTES # (AUTO) 0.9 10^3/uL (0.0-1.0); MONOCYTES % (AUTO) 9.4 %; NEUTROPHILS % (AUTO) 49.5 %; PLT - PLATELET COUNT 279 10^3/uL (130-450); RED BLOOD COUNT 4.47 10^6/uL (4.70-6.10); RED CELL DISTRIBUTION WIDTH 11.9 % (12.0-15.0)
[2019-08-06 00:42] LABS: ALBUMIN 4.3 g/dL (3.2-5.5); ALBUMIN/GLOBULIN RATIO 1.2 (1.0-2.2); BILIRUBIN,TOTAL 0.9 mg/dL (0.2-1.0); CALCIUM 9.2 mg/dL (8.5-10.3); TOTAL PROTEIN 7.9 g/dL (6.7-8.2)
[2019-08-06 01:05] LABS: BILIRUBIN,URINE NEGATIVE (NEGATIVE); GLUCOSE, URINE (UA) NEGATIVE (NEGATIVE); KETONES,URINE (UA) NEGATIVE (NEGATIVE); LEUKOCYTE ESTERASE, URINE NEGATIVE (NEGATIVE); NITRITE,URINE NEGATIVE (NEGATIVE); OCCULT BLOOD,URINE NEGATIVE (NEGATIVE); PH,URINE 6.5 PH (5.0-7.5); PROTEIN,URINE NEGATIVE (NEGATIVE); UROBILINOGEN,URINE 0.2 (NORMAL) E.U./dL (NORMAL)
[2019-08-06 01:08] LABS: CLARITY,URINE CLEAR (CLEAR)
--- NOTE | 2019-08-06 01:24 | CT Report ---
Reason: RLQ tenderness/pain Procedure Date: 08/06/2019 Accession Number: [id number] / [id number] Procedure: CT - Abdomen/Pelvis W CPT Code: Final Report FULL RESULT: EXAM: CT ABDOMEN AND PELVIS EXAM DATE:08/06/2019 01:04 AM CLINICAL HISTORY: RLQ tenderness/pain. COMPARISONS: None. TECHNIQUE: Routine helical CT imaging was performed through the abdomen and pelvis with OPTI 320 100ML IV contrast. Oral contrast No. Reconstructions: Coronal and sagittal. In accordance with CT protocol optimization, one or more of the following dose reduction techniques were utilized for this exam: automated exposure control, adjustment of mA and/or KV based on patient size, or use of iterative reconstructive technique. FINDINGS: Lung Bases: Clear lung bases. No pleural effusion. Liver: Normal. Gallbladder/Bile Ducts: Normal. Spleen: Normal. Pancreas: Normal. Adrenal Glands: Normal. Kidneys: Mild right hydronephrosis versus parapelvic cysts. The left kidney and urinary collecting system are normal. Peritoneal Cavity/Bowel: The appendix is dilated measuring 12 mm with adjacent periappendiceal fat stranding and a small amount of fluid. No abscess. Otherwise, normal contour and caliber of the bowel. No free air or lymphadenopathy. The appendix is normal. Pelvic Organs: Normal. The bladder and visualized pelvic organs appear normal. Vasculature: Normal. Bones: Normal. Other: None. IMPRESSION: Acute appendicitis without perforation/abscess. Mild right hydronephrosis versus parapelvic cysts. RADIA
[2019-08-06] MEDS ORDERED: PIPERACILLIN/TAZOBACTAM 3.375 GM in SODIUM CHLORIDE 0.9% MINIBAG 100 ML IV STA (01:32)
[2019-08-06] MEDS ORDERED: LACTATED RINGERS 1,000 ML IV STA (01:41)
[2019-08-06] MEDS ORDERED: MORPHINE 2 MG/ML CARPUJECT IVP STA ×2 (01:41→05:11)
--- NOTE | 2019-08-06 05:22 | ANESTHESIA ---
Pre-Anesthesia VS, & Labs - Diagnosis abominal pain/ acute apendictis - Procedure Lap Appendectomy Vital Signs: Temp Pulse Resp BP Pulse Ox 37.1 C 58 L 15 123/73 97 08/06/19 01:43 08/06/19 05:12 08/06/19 05:12 08/06/19 05:12 08/06/19 05:12 Height 5 ft 10 in Weight (kg) 95.254 kg Body Mass Index 30.1 - Lab Results Current Lab Results: Laboratory Tests 08/06/19 00:10: Sodium 135, Potassium 3.8, Chloride 102, Carbon Dioxide 27, Anion Gap 6.0, BUN 17, Creatinine 1.0, Estimated GFR (MDRD) 91, Glucose 102 H, Calcium 9.2, Total Bilirubin 0.9, AST 18, ALT 14, Alkaline Phosphatase 80, Total Protein 7.9, Albumin 4.3, Globulin 3.6, Albumin/Globulin Ratio 1.2, Lipase 29 08/06/19 00:10: WBC 10.0, RBC 4.47 L, Hgb 14.0, Hct 40.9 L, MCV 91.5, MCH 31.3 H , MCHC 34.2, RDW 11.9 L, Plt Count 279, MPV 10.9, Neut # (Auto) 5.0, Lymph # (Auto) 4.0 H, [place] # (Auto) 0.9, Eos # (Auto) 0.1, Baso # (Auto) 0.1, Absolute Nucleated RBC 0.00, Nucleated RBC % 0.0 Fish Bones: 08/06/19 00:10 08/06/19 00:10 Home Medications and Allergies Active Medications Lactated Ringer's (Lr) 1,000 mls @ 150 mls/hr IV .[id number] STA Stop: 08/06/19 08:20 Last Admin: 08/06/19 02:06 Dose: 150 mls/hr Allergies/Adverse Reactions: Allergies Allergy/AdvReac Type Severity Reaction Status Date / Time No Known Drug Allergies Allergy Verified 08/05/19 22:55 Anes History & Medical History - Anesthetic History Anesthesia Complications: reports: Other-see comment (Has never had any anesthesia in the past) Family history of Anesthesia Complications: Denies Family history of Malignant Hyperthermia: Denies - Medical History Cardiovascular: reports: None Pulmonary: reports: None Gastrointestinal: reports: None Urinary: reports: None Neuro: reports: None Musculoskeletal: reports: None Endocrine/Autoimmune: reports: None Blood Disorders: reports: None Skin: reports: None Smoking Status: Former smoker (quite smoking a month ago) Psychosocial: reports: Anxiety, Other (Panic attacks) Exam General: Alert, Oriented x3, Cooperative, No acute distress Dental: WNL Mouth Openin Fingerbreadth Neck Mobility: Normal Mallampati classification: II Thyromental Distance: 4-6 cm Respiratory: Lungs clear, Normal breath sounds, No respiratory distress, No accessory muscle use Cardiovascular: Regular rate, Normal S1, Normal S2, No murmurs Abdomen: Normal bowel sounds, Soft, No tenderness, No hepatospenomegaly, No masses Extremities: No clubbing, No cyanosis, No edema, Normal pulses, No tenderness/swelling Neurological: Normal gait, Normal speech, Strength at 5/5 X4 ext, Normal tone, Sensation intact, Cranial nerves 3-12 NL, Reflexes 2+ Mental/Cognitive Status: Alert/Oriented X3, Normal for patient Cognitive Status: Within normal limits Plan Anesthesia Type: General Consent for Procedure(s) Verified and Reviewed: Yes Code Status: Attempt Resuscitation ASA classification: 1-Healthy patient Is this case an emergency?: No
[2019-08-06] MEDS ORDERED: BUPIVACAINE 0.5% PF 30 ML VIAL ONE (05:37)
[2019-08-06] MEDS ORDERED: LIDOCAINE 1%-EPI 1:100000 20 ML MDV ONE (05:37)
[2019-08-06] MEDS ORDERED: DEXAMETHASONE 4 MG/ML VIAL IVP ONE (06:01)
[2019-08-06] MEDS ORDERED: ROCURONIUM 50 MG/5 ML VIAL IVP ONE (06:01)
[2019-08-06] MEDS ORDERED: MIDAZOLAM 2 MG/2 ML VIAL IVP ONE (06:01)
[2019-08-06] MEDS ORDERED: PROPOFOL 200 MG/20 ML VIAL IVP ONE (06:01)
[2019-08-06] MEDS ORDERED: fentaNYL 100 MCG/2 ML VIAL IVP ONE (06:01)
[2019-08-06] MEDS ORDERED: LACTATED RINGERS 1,000 ML IV ONE ×2 (06:10→06:39)
--- NOTE | 2019-08-06 06:15 | HISTORY & PHYSICAL EXAMINATION ---
HPI - Admitted From Admitted from: ED - History Obtained From Records Reviewed: RN notes reviewed History obtained from: Patient - History of Present Illness Severity at the worst: reports: Moderate Pain Quality: reports: Sharp, Aching Context-Pain started w/: reports: Rest Timing: reports: Gradual onset Duration: reports: Hours: (About 12) Improved with: reports: Rest Worsened by: reports: Exertion, Movement, Palpation PMH/PSH - Past Medical History Cardiovascular: positive: None Respiratory: positive: None Neuro: positive: None Endocrine/Autoimmune: positive: None GI: positive: None : positive: None HEENT: positive: None Psych: positive: Anxiety, Panic attacks Musculoskeletal: positive: None Derm: positive: None MRSA Hx?: No Social & Family Hx - Social History Does the pt smoke?: No Smoking Status: Former smoker (quite smoking a month ago) Does the pt drink ETOH?: Yes Does the pt have substance abuse?: No - POLST Patient has POLST: No Meds/Allgy - Home Medications Home Medications: Ambulatory Orders Medication Instructions Recorded Confirmed hydrOXYzine pamoate [Hydroxyzine 25 mg PO BID PRN #12 capsule 06/10/19 Pamoate] Ondansetron Odt [Zofran] 4 mg TL Q6H PRN #10 tablet 08/04/19 Pantoprazole [Protonix] 40 mg PO DAILY PRN #14 tablet 08/04/19 - Allergies Allergies/Adverse Reactions: Allergies Allergy/AdvReac Type Severity Reaction Status Date / Time No Known Drug Allergies Allergy Verified 08/05/19 22:55 Review of Systems - Constitutional Constitutional: reports: Malaise, Poor appetite. denies: Diaphoresis, Night sweats - Eyes Eyes: denies: Pain, Irritation, Amaurosis - Ears, Nose & Throat Ears, Nose & Throat: denies: Tinnitus, Vertigo, Nasal pain - Cardiovascular Cariovascular: denies: Irregular heart rate, Palpitations, Chest pain, Edema - Respiratory Respiratory: denies: Cough, Sputum production, Snoring - Gastrointestinal Gastrointestinal: reports: Abdominal pain, Nausea. denies: Abdominal distention, Constipation, Diarrhea, Change in bowel habits, Vomiting - Genitourinary Genitourinary: denies: Dysuria, Frequency, Urgency - Musculoskeletal Musculoskeletal: denies: Muscle pain, Back pain, Muscle aches - Integumentary Integumentary: denies: Rash, Pruritis - Neurological Neurological: denies: Focal weakness - Hematologic/Lymphatic Hematologic/Lymphatic: denies: Anemia, Bruising Exam - Vital Signs Reviewed Vital Signs: Yes Vital Signs: Vital Signs x48h Temp Pulse Resp BP Pulse Ox 08/06/19 05:58 56 L 16 127/73 100 08/06/19 05:12 58 L 15 123/73 97 08/06/19 03:27 63 15 129/73 98 08/06/19 02:33 17 08/06/19 02:09 74 17 132/77 H 100 08/06/19 01:44 140/87 H 08/06/19 01:43 37.1 C 95 16 100 08/06/19 01:24 17 08/06/19 01:02 153/75 H 08/06/19 01:01 56 L 16 100 08/06/19 00:45 17 08/06/19 00:38 58 L 16 124/77 100 08/06/19 00:22 56 L 16 132/75 H 100 08/06/19 00:20 57 L 16 100 08/05/19 22:52 36.9 C 72 18 141/80 H 100 - Physical Exam General Appearance: positive: Alert, Mild distress Eyes Bilateral: positive: Normal inspection, PERRL, EOMI ENT: positive: ENT inspection nml, Pharynx nml, No signs of dehydration Neck: positive: Nml inspection, Thyroid nml, No JVD, Trachea midline Respiratory: positive: Chest non-tender, No respiratory distress, Breath sounds nml Cardiovascular: positive: Regular rate & rhythm, No murmur, No gallop Peripheral Pulses: positive: 2+ Abdomen: positive: Tenderness (Right lower quadrant), Guarding, Rebound Back: positive: Nml inspection. negative: CVA tenderness (R), CVA tenderness (L) Skin: positive: Color nml, No rash, Warm Extremities: positive: Non-tender, Full ROM, Nml appearance Neurologic/Psychiatric: positive: Oriented x3, CN's nml (2-12) Results - Lab Results Fish Bones: 08/06/19 00:10 08/06/19 00:10 Other Lab Results: Lab Results x24hrs 08/06/19 08/06/19 08/06/19 Range/Units 00:45 00:10 00:10 WBC 10.0 (4.8-10.8) x10^3/uL RBC 4.47 L (4.70-6.10) 10^6/uL Hgb 14.0 (14.0-18.0) g/dL Hct 40.9 L (42.0-52.0) % MCV 91.5 (80.0-94.0) fL MCH 31.3 H (27.0-31.0) pg MCHC 34.2 (32.0-36.0) g/dL RDW 11.9 L (12.0-15.0) % Plt Count 279 (130-450) 10^3/uL MPV 10.9 (7.4-11.4) fL Neut # (Auto) 5.0 (1.5-6.6) 10^3/uL Lymph # (Auto) 4.0 H (1.5-3.5) 10^3/uL [place] # (Auto) 0.9 (0.0-1.0) 10^3/uL Eos # (Auto) 0.1 (0.0-0.7) 10^3/uL Baso # (Auto) 0.1 (0.0-0.1) 10^3/uL Absolute Nucleated RBC 0.00 x10^3/uL Nucleated RBC % 0.0 /100WBC Sodium 135 (135-145) mmol/L Potassium 3.8 (3.5-5.0) mmol/L Chloride 102 (101-111) mmol/L Carbon Dioxide 27 (21-32) mmol/L Anion Gap 6.0 (6-13) BUN 17 (6-20) mg/dL Creatinine 1.0 (0.6-1.2) mg/dL Estimated GFR (MDRD) 91 (>89) Glucose 102 H (70-100) mg/dL Calcium 9.2 (8.5-10.3) mg/dL Total Bilirubin 0.9 (0.2-1.0) mg/dL AST 18 (10-42) IU/L ALT 14 (10-60) IU/L Alkaline Phosphatase 80 (42-121) IU/L Total Protein 7.9 (6.7-8.2) g/dL Albumin 4.3 (3.2-5.5) g/dL Globulin 3.6 (2.1-4.2) g/dL Albumin/Globulin Ratio 1.2 (1.0-2.2) Lipase 29 (22-51) U/L Urine Color YELLOW Urine Clarity CLEAR (CLEAR) Urine pH 6.5 (5.0-7.5) PH Ur Specific [place] 1.015 (1.002-1.030) Urine Protein NEGATIVE (NEGATIVE) mg/dL Urine Glucose (UA) NEGATIVE (NEGATIVE) mg/dL Urine Ketones NEGATIVE (NEGATIVE) mg/dL Urine Occult Blood NEGATIVE (NEGATIVE) Urine Nitrite NEGATIVE (NEGATIVE) Urine Bilirubin NEGATIVE (NEGATIVE) Urine Urobilinogen 0.2 (NORMAL) (NORMAL) E.U./dL Ur Leukocyte Esterase NEGATIVE (NEGATIVE) Ur Microscopic Review NOT INDICATED Urine Culture Comments NOT INDICATED - Diagnostic Imaging Results Diagnostic Imaging Results: positive: Final report reviewed Diagnostic Imaging Results Comments: Acute appendicitis without perforation or abscess Impression/Plan - Problem List Problem List: Acute appendicitis - I have recommended appendectomy. We have discussed the risks and benefits of the procedure and the patient has expressed understanding and signed the consent. We will proceed to the operating room this morning.
[2019-08-06] MEDS ORDERED: LIDOCAINE 1%-EPI 1:100000 20 ML MDV SUBQ ONE (06:56)
[2019-08-06] MEDS ORDERED: BUPIVACAINE 0.5% PF 30 ML VIAL SUBQ ONE (06:56)
--- NOTE | 2019-08-06 07:02 | OPERATIVE REPORT ---
Operative Report - General Procedure Date: 08/06/19 Planned Procedure: Laparoscopic Appendectomy Pre-Op Diagnosis: Acute appendicitis Procedure Performed: Laparoscopic Appendectomy Post Op Diagnosis: Acute appendicitis - Procedure Note Primary Surgeon: Amando Anesthesia Provider: MARSHALL Fuentes Anesthesia Technique: General ET tube, Local Pathology: Appendix in formalin to pathology Estimated Blood Loss (mL): 20 Findings: Acute appendicitis without perforation Complications: None apparent - Other Other Information/Narrative: After obtaining informed consent, the patient is brought to the operating room and placed in the supine position on the operating table. Following successful induction of general endotracheal anesthesia, appropriate padding of all bony prominences, and placement of appropriate monitors, the abdomen was prepped and draped in the standard surgical fashion. A timeout was held per scope protocol. All elements of the surgical safety checklist were followed before, during, and after the procedure. Following infiltration with local anesthetic to create a field block, an incision was created inferior to the umbilicus and carried down through the skin and subcutaneous tissue to reveal the fascia below. 2-0 Vicryl retention sutures were placed on either side of the midline and the abdomen was entered under direct vision using a 15 blade scalpel. A 10 mm blunt Funes balloon trocar was placed in the abdominal cavity and it was insufflated to 15 mmHg pressure. The patient was placed in Trendelenburg position with the left side rotated toward the floor. A second trocar, 5 mm was placed in the right upper quadrant and a third trocar, 5 mm as well was placed midway between the umbilicus and the pubis. Upon placing the camera in the abdomen, we noted a inflammatory process in the right lower quadrant. There was no gross purulence outside of the appendix. The appendix itself was in the retrocecal position. The white line of Toldt was incised and the right colon mobilized medially to reveal the appendix and its attachment to the cecum. It was elevated and carefully dissected free from surrounding structures. A 60 mm [place] stapler was used to divide the mesoappendix and appendix from its attachment to the cecum. It was placed in an Endo Catch bag and removed via the umbilical port. The wound was checked for hemostasis. It was irrigated with warm saline solution and aspirated free of all fluid and particulate matter. When we were satisfied hemostasis had been obtained, the trochars were removed under direct vision and the abdomen was desufflated. The umbilical incision was closed with interrupted Vicryl suture and Monocryl was placed in the skin. Dermabond was applied to all incisions. All sponge, needle, and instrument counts were correct at the conclusion of the case. The patient was allowed to wake from anesthesia without difficulty and taken to the postanesthesia care unit in good condition.
[2019-08-06] MEDS ORDERED: ONDANSETRON 4 MG/2 ML VIAL IVP PRN (07:05)
[2019-08-06] MEDS ORDERED: oxyCODONE 5 MG TABLET PO PRN (07:05)
[2019-08-06] MEDS ORDERED: ACETAMINOPHEN 325 MG TABLET PO PRN (07:05)
[2019-08-06] MEDS ORDERED: IBUPROFEN 600 MG TABLET PO PRN (07:05)
[2019-08-06] MEDS: HYDROmorphone 0.5 MG/0.5 ML SYRINGE ONE ×2 (07:24→07:30)
[2019-08-06] MEDS ORDERED: HYDROmorphone 1 MG/ML CARPUJECT ONE (07:28)
[2019-08-06] MEDS: fentaNYL 100 MCG/2 ML VIAL ONE ×2 (07:45→07:51)
[2019-08-06] MEDS ORDERED: IBUPROFEN 600 MG TABLET PO ONE (08:11)
[2019-08-06] MEDS ORDERED: ACETAMINOPHEN 325 MG TABLET PO ONE (08:11)
[2019-08-06] MEDS ORDERED: oxyCODONE 5 MG TABLET ONE (08:11)
[2019-08-06 08:37] VITALS: BP 139/89
== END 2019-08-06 06:01 | disposition home or self-care (01) ==
LOC: ED 22:26 → SDS 08-06 06:00
PROVIDERS: ATTEND Surgery
PROC: 0DTJ4ZZ Resection of Appendix, Percutaneous Endoscopic Approach (ICD-10-PCS; principal; 2019-08-06 06:00)
DX: K35.30 Acute appendicitis with localized peritonitis, without perforation or gangrene (principal); Z87.891 Personal history of nicotine dependence; F41.9 Anxiety disorder, unspecified
CPT/HCPCS: 36415; 44970; 74177; 80053; 81003; 83690; 85025; 96361; 96365; 96375; 96376; 99284; 99285; A9270; J1170; J7120; Q9967; 81001; 87086

== ENCOUNTER 2019-09-16 01:06 | Emergency (ER) | payer OTHER ==
--- NOTE | 2019-09-16 01:21 | ED Physician Documentation ---
PD HPI CHEST PAIN - Stated complaint Stated Complaint: CP/JAW PX - Chief complaint Chief Complaint: Cardiac - History obtained from History obtained from: Patient - History of Present Illness Timing - onset: Enter time (01:00), Today Timing - onset during: Rest Timing - details: Abrupt onset Pain level now: 4 Quality: Pain Location: Left jaw Radiation: Left upper extremity, Other (left chest) Improved by: Nothing Worsened by: Other (no exacerbating factors) Associated symptoms: Shortness of air, Palpitations. No: Diaphoresis, Nausea, Vomiting, Feeling faint / dizzy Similar symptoms before: No diagnosis Recently seen: Not recently seen - Additional information Additional information: while at rest at home approximately 45 minutes [employer], patient had sudden onset rapid palpitations with left jaw pain that radiated down LUE and to left chest. Also "feels like the left side of my face is drooping a bit" (per patient). Has been evaluated in this ED a few times last year for similar symptoms with unremarkable testing. He takes hydroxyzine PRN for anxiety and took a dose of this approximately 1 hour prior to symptom onset Review of Systems Constitutional: denies: Fever Cardiac: reports: Chest pain / pressure, Palpitations. denies: Pedal edema, Calf pain Respiratory: reports: Reviewed and negative PD PAST MEDICAL HISTORY - Past Medical History Past Medical History: Yes Cardiovascular: None Respiratory: None Neuro: None Endocrine/Autoimmune: None GI: None : None HEENT: None Psych: Anxiety, Panic attacks Musculoskeletal: None Derm: None - Past Surgical History Past Surgical History: Yes - Present Medications Home Medications: Ambulatory Orders Medication Instructions Recorded Confirmed hydrOXYzine pamoate [Hydroxyzine 25 mg PO BID PRN #12 capsule 06/10/19 Pamoate] - Allergies Allergies/Adverse Reactions: Allergies Allergy/AdvReac Type Severity Reaction Status Date / Time No Known Drug Allergies Allergy Verified 09/16/19 01:19 - Social History Does the pt smoke?: No Smoking Status: Never smoker Does the pt drink ETOH?: Yes Does the pt have substance abuse?: No - Immunizations Immunizations are current?: Yes - POLST Patient has POLST: No PD ED PE NORMAL - Vitals Vital signs reviewed: Yes - General General: Alert and oriented X 3, No acute distress, Well developed/nourished - HEENT HEENT: Moist mucous membranes - Neck Neck: Supple, no meningeal sign - Cardiac Cardiac: RRR, No murmur - Respiratory Respiratory: No respiratory distress, Clear bilaterally - Extremities Extremities: No edema - Neuro Neuro: Alert and oriented X 3, manager regional 2-12 intact, No motor deficit, No sensory deficit, Normal speech, Other (no facial asymmetry or weakness) Eye Opening: Spontaneous Motor: Obeys Commands Verbal: Oriented GCS Score: 15 Results - Vitals Vitals: Vital Signs - 24 hr 09/16/19 09/16/19 09/16/19 01:10 02:33 03:15 Temperature 36.8 C Heart Rate 94 74 72 Respiratory 16 13 18 Rate Blood Pressure 142/82 H 133/80 H 117/73 O2 Saturation 100 97 98 09/16/19 03:23 Temperature 37.2 C Heart Rate 79 Respiratory 17 Rate Blood Pressure 117/73 O2 Saturation 98 Oxygen O2 Source Room air - EKG (time done) No standard instances Rate: Rate (enter#) (92) Rhythm: NSR [place]: Normal Intervals: Normal [place] QRS: Normal Ischemia: Normal ST segments Compare to prior EKG: Unchanged from prior EKG - Labs Labs: Laboratory Tests 09/16/19 02:26 Troponin I High Sens 6.0 - Rads (name of study) chest xray Radiology: Prelim report reviewed, See rad report PD MEDICAL DECISION MAKING - ED course Complexity details: reviewed old records, reviewed results, re-evaluated patient, considered differential, d/w patient ED course: No ectopy on cardiac telemetric monitoring during ED stay. normal cxr and normal high sensitivity troponin, normal EKG. Encouraged to follow up with PMD, return if worse Departure - Departure Disposition: 01 Home, Self Care Clinical Impression: Palpitations Chest pain Qualifiers: Chest pain type: unspecified Qualified Code(s): R07.9 - Chest pain, unspecified Condition: Good Instructions: ED Chest Pain Atypical Unkn Cause, ED Palpitations Follow-Up: Wade Vargas MD [Primary Care Provider] -
--- NOTE | 2019-09-16 02:48 | XRAY Report ---
Reason: left chest pain Procedure Date: 09/16/2019 Accession Number: [id number] / [id number] Procedure: XR - Chest 2 View X-Ray CPT Code: 68608 Final Report FULL RESULT: EXAM: CHEST RADIOGRAPHY EXAM DATE: 09/16/2019 02:17 AM. CLINICAL HISTORY: Left chest pain. COMPARISON: CHEST 2 VIEW 05/23/2019 5:50 AM. TECHNIQUE: 2 views. FINDINGS: Lungs/Pleura: No focal opacities evident. No pleural effusion. No pneumothorax. Normal volumes. Mediastinum: Heart and mediastinal contours are unremarkable. Other: None. IMPRESSION: Normal 2-view chest radiography. RADIA
[2019-09-16 03:16] VITALS: BP 117/73
== END 2019-09-16 03:30 | disposition home or self-care (01) ==
LOC: ED 01:06
DX: R07.9 Chest pain, unspecified (principal); R00.2 Palpitations; R68.84 Jaw pain
CPT/HCPCS: 36415; 71046; 84484; 93005; 99284

== ENCOUNTER 2019-09-26 01:34 | Emergency (ER) | payer OTHER ==
[2019-09-26 01:45] VITALS: BP 156/83
[2019-09-26 01:51] LABS: BILIRUBIN,URINE NEGATIVE (NEGATIVE); GLUCOSE, URINE (UA) NEGATIVE (NEGATIVE); KETONES,URINE (UA) 15 mg/dL (NEGATIVE); LEUKOCYTE ESTERASE, URINE NEGATIVE (NEGATIVE); NITRITE,URINE NEGATIVE (NEGATIVE); OCCULT BLOOD,URINE NEGATIVE (NEGATIVE); PH,URINE 6.5 PH (5.0-7.5); PROTEIN,URINE NEGATIVE (NEGATIVE); UROBILINOGEN,URINE 0.2 (NORMAL) E.U./dL (NORMAL)
[2019-09-26 01:53] LABS: CLARITY,URINE CLEAR (CLEAR)
--- NOTE | 2019-09-26 01:55 | ED Physician Documentation ---
PD HPI MALE - Stated complaint Stated Complaint: MALE - Chief complaint Chief Complaint: Abd Pain - History obtained from History obtained from: Patient (24-year-old man presented to emergency room with right lower quadrant groin area discomfort. This started yesterday and gradually has become intermittent. No tenderness to the testicle. No fever. No hematuria no dysuria. He had appendectomy in July 2019. Recovery has been uneventful. He did not notice any lump over the groin or abdominal area.) - History of Present Illness Timing - onset: Yesterday Timing - duration: Days (1) Timing - details: Gradual onset Pain level max: 3 Pain level now: 3 Review of Systems Ten Systems: 10 systems reviewed and negative Constitutional: reports: Reviewed and negative Eyes: reports: Reviewed and negative Ears: reports: Reviewed and negative Nose: reports: Reviewed and negative Throat: reports: Reviewed and negative Cardiac: reports: Reviewed and negative Respiratory: reports: Reviewed and negative GI: reports: Abdominal Pain (groin) : reports: Reviewed and negative Skin: reports: Reviewed and negative Musculoskeletal: reports: Reviewed and negative Neurologic: reports: Reviewed and negative Psychiatric: reports: Reviewed and negative Endocrine: reports: Reviewed and negative Immunocompromised: reports: Reviewed and negative PD PAST MEDICAL HISTORY - Past Medical History Cardiovascular: None Respiratory: None Neuro: None Endocrine/Autoimmune: None GI: None : Other (Recent appendectomy July 2019) HEENT: None Psych: Anxiety, Panic attacks Musculoskeletal: None Derm: None - Past Surgical History Past Surgical History: Yes - Present Medications Home Medications: Ambulatory Orders Medication Instructions Recorded Confirmed hydrOXYzine pamoate [Hydroxyzine 25 mg PO BID PRN #12 capsule 06/10/19 Pamoate] Ibuprofen 800 mg PO Q6HR #30 tablet 09/26/19 - Allergies Allergies/Adverse Reactions: Allergies Allergy/AdvReac Type Severity Reaction Status Date / Time No Known Drug Allergies Allergy Verified 09/16/19 01:19 - Social History Does the pt smoke?: No Smoking Status: Never smoker Does the pt drink ETOH?: Yes Does the pt have substance abuse?: No - Immunizations Immunizations are current?: Yes - POLST Patient has POLST: No PD ED PE NORMAL - Vitals Vital signs reviewed: Yes - General General: Alert and oriented X 3, No acute distress - HEENT HEENT: Atraumatic, PERRL, EOMI - Neck Neck: Supple, no meningeal sign - Cardiac Cardiac: RRR, No murmur - Respiratory Respiratory: Clear bilaterally - Abdomen Abdomen: Normal bowel sounds, Soft, Non tender, Non distended - Male Male : Other (Ingrown canal was examined, there is no bowel content. Anterior abdominal wall was examined there is no weak spots, Good cremasteric reflex, no tenderness over the testicular area, no discoloration,) - Derm Derm: Warm and dry - Extremities Extremities: No deformity - Neuro Neuro: Alert and oriented X 3 - Psych Psych: Normal mood, Normal affect Results - Vitals Vitals: Vital Signs - 24 hr 09/26/19 01:37 Temperature 36.8 C Heart Rate 85 Respiratory 16 Rate Blood Pressure 156/83 H O2 Saturation 100 Oxygen O2 Source Room air - Labs Labs: Laboratory Tests 09/26/19 01:40 Urine Color YELLOW Urine Clarity CLEAR Urine pH 6.5 Ur Specific [place] <=1.005 Urine Protein NEGATIVE Urine Glucose (UA) NEGATIVE Urine Ketones 15 H Urine Occult Blood NEGATIVE Urine Nitrite NEGATIVE Urine Bilirubin NEGATIVE Urine Urobilinogen 0.2 (NORMAL) Ur Leukocyte Esterase NEGATIVE Urine RBC None Seen Urine WBC 0-3 Ur Squamous Epith Cells NONE SEEN Urine Bacteria None Seen Urine Culture Comments NOT INDICATED PD MEDICAL DECISION MAKING - ED course Complexity details: d/w patient ED course: Patient presented with right lower quadrant and groin area tenderness. Differential diagnoses include testicular torsion, inguinal hernia, cystitis.Given that patient recently had appendectomy about 1 and half months ago, this could well be scarring as well. In emergency room urinalysis will rule out renal calculi. My suspicion for acute diverticulitis, Testicular torsion,Epididymitis is minimum Urinalysis is normal, there is no hematuria. My suspicion for renal calculi is also minimum. I suspect this is anterior abdominal wall strain secondary to heavy lifting earlier today during PE in the . Patient will be given 2 days off, and ask to take ibuprofen for pain. He is asked to follow with his primary care doctor in the next 5 to 7 days for reassessment. Departure - Departure Disposition: 01 Home, Self Care Clinical Impression: Abdominal wall strain Qualifiers: Encounter type: initial encounter Qualified Code(s): S39.011A - Strain of muscle, fascia and tendon of abdomen, initial encounter Strain of right inguinal muscle Qualifiers: Encounter type: initial encounter Qualified Code(s): S39.013A - Strain of muscle, fascia and tendon of pelvis, initial encounter Condition: Stable Instructions: ED Strain Abdominal Muscle Follow-Up: Wdae Vargas MD [Primary Care Provider] - Prescriptions: Ibuprofen 800 mg PO Q6HR #30 tablet Comments: fYour right inguinal area tenderness is likely secondary to abdominal wall strain, you will be off For 2 days. Please follow-up, care doctor in the next 3 to 5 days for reassessment. If there is worsening abdominal pain, please contact your doctor or return to the emergency room for further management. Forms: Activity restrictions Discharge Date/Time: 09/26/19 02:18
[2019-09-26 01:59] LABS: BACTERIA,URINE None Seen /HPF (None Seen); RBC,URINE None Seen /HPF (0-5); SQUAMOUS EPITHELIAL CELL,UR NONE SEEN (<= Few)
[2019-09-26] MEDS ORDERED: IBUPROFEN 800 MG TABLET PO STA (02:10)
== END 2019-09-26 02:18 | disposition home or self-care (01) ==
LOC: ED 01:34
DX: S39.011A Strain of muscle, fascia and tendon of abdomen, initial encounter (principal); S39.013A Strain of muscle, fascia and tendon of pelvis, initial encounter; X50.0XXA Overexertion from strenuous movement or load, initial encounter; Y93.89 Activity, other specified; Y99.1 Military activity; Z90.49 Acquired absence of other specified parts of digestive tract
CPT/HCPCS: 81001; 99283; 99284; A9270; 87086

== ENCOUNTER 2019-10-08 02:43 | Emergency (ER) | payer OTHER ==
--- NOTE | 2019-10-08 03:54 | ED Physician Documentation ---
History of Present Illness - Stated complaint Stated Complaint: CHEST TIGHTNESS - Chief complaint Chief Complaint: Resp - History obtained from History obtained from: Patient - Additonal information Additional information: T&R from this ED twice last month, as well as twice July, and May. 9 [facility] emergency visit within 12 months. tonight he c/o dyspnea, chest pressure, tightness in throat. symptoms started thus evening. He also noted his pulse was 48 according to his fitbit Review of Systems Constitutional: reports: Reviewed and negative Cardiac: reports: Chest pain / pressure. denies: Palpitations, Calf pain Respiratory: reports: Reviewed and negative GI: reports: Reviewed and negative : denies: Dysuria, Frequency Skin: reports: Reviewed and negative Musculoskeletal: reports: Reviewed and negative PD PAST MEDICAL HISTORY - Past Medical History Past Medical History: Yes Cardiovascular: None Respiratory: None Neuro: None Endocrine/Autoimmune: None GI: None : Other HEENT: None Psych: Anxiety, Panic attacks Musculoskeletal: None Derm: None - Past Surgical History Past Surgical History: Yes - Present Medications Home Medications: Ambulatory Orders Medication Instructions Recorded Confirmed hydrOXYzine pamoate [Hydroxyzine 25 mg PO BID PRN #12 capsule 06/10/19 Pamoate] Ibuprofen 800 mg PO Q6HR #30 tablet 09/26/19 - Allergies Allergies/Adverse Reactions: Allergies Allergy/AdvReac Type Severity Reaction Status Date / Time No Known Drug Allergies Allergy Verified 09/16/19 01:19 - Social History Does the pt smoke?: No Smoking Status: Never smoker Does the pt drink ETOH?: Yes Does the pt have substance abuse?: No - Immunizations Immunizations are current?: Yes - POLST Patient has POLST: No PD ED PE NORMAL - Vitals Vital signs reviewed: Yes - General General: Alert and oriented X 3, No acute distress, Well developed/nourished - HEENT HEENT: Moist mucous membranes - Neck Neck: Supple, no meningeal sign - Cardiac Cardiac: RRR, No gallop, No rub - Respiratory Respiratory: No respiratory distress, Clear bilaterally - Abdomen Abdomen: Normal bowel sounds, Soft, Non tender, Non distended - Back Back: No CVA TTP - Derm Derm: Normal color, Warm and dry, No rash - Extremities Extremities: No edema - Neuro Neuro: Alert and oriented X 3 Results - Vitals Vitals: Oxygen O2 Source Room air PD MEDICAL DECISION MAKING - ED course Complexity details: reviewed old records, reviewed results, re-evaluated patient, considered differential, d/w patient Departure - Departure Disposition: 01 Home, Self Care Clinical Impression: Dyspnea Qualifiers: Dyspnea type: unspecified Qualified Code(s): R06.00 - Dyspnea, unspecified Condition: Good Instructions: ED Dyspnea Shortness of Breath Follow-Up: Wade Vargas MD [Primary Care Provider] - Discharge Date/Time: 10/08/19 04:08
[2019-10-08 04:08] VITALS: BP 130/79
== END 2019-10-08 04:08 | disposition home or self-care (01) ==
LOC: ED 02:43
DX: R06.00 Dyspnea, unspecified (principal); R07.89 Other chest pain
CPT/HCPCS: 99282; 99283

== ENCOUNTER 2019-11-09 10:23 | Emergency (ER) | payer OTHER ==
--- NOTE | 2019-11-09 11:18 | ED Physician Documentation ---
PD HPI CHEST PAIN - Stated complaint Stated Complaint: CHEST PX - Chief complaint Chief Complaint: MHE - History obtained from History obtained from: Patient - History of Present Illness Timing - onset: Today Timing - onset during: Sleep (awoke this morning with feeling of some aching pain and numbness localized left lateral chest wall around ribs 6-8. No back pain. No injury. Otherwise feeling okay. Does not hurt to breath. Feeling anxious about it, concerned about heart problem.) Timing - details: Abrupt onset, Still present (he says the numbness is mainly gone now but still some aching feeling at lateral chest with movement.) Quality: Aching. No: Sharp Location: Left chest (lateral chest in midaxillary area) Radiation: No: Jaw, Neck, Back, Abdominal Improved by: No: Rest Worsened by: Movement. No: Exertion, Inspiration, Palpation Associated symptoms: Other (feeling of numbness/tingling in same area). No: Shortness of air, Diaphoresis, Nausea, Feeling faint / dizzy, Palpitations Similar symptoms before: Has not had sx before Review of Systems Constitutional: denies: Fever, Chills, Myalgias Nose: denies: Rhinorrhea / runny nose, Congestion Throat: denies: Sore throat Cardiac: reports: Chest pain / pressure (no recent exertional symptoms, injury, nor cough). denies: Palpitations, Pedal edema, Calf pain Respiratory: denies: Dyspnea, Cough, Wheezing GI: denies: Abdominal Pain, Nausea, Vomiting, Diarrhea PD PAST MEDICAL HISTORY - Past Medical History Cardiovascular: None Respiratory: None Neuro: None Endocrine/Autoimmune: None GI: None : Other HEENT: None Psych: Anxiety, Panic attacks Musculoskeletal: None Derm: None - Past Surgical History Past Surgical History: Yes - Present Medications Home Medications: Ambulatory Orders Medication Instructions Recorded Confirmed hydrOXYzine pamoate [Hydroxyzine 25 mg PO BID PRN #12 capsule 06/10/19 11/09/19 Pamoate] - Allergies Allergies/Adverse Reactions: Allergies Allergy/AdvReac Type Severity Reaction Status Date / Time No Known Drug Allergies Allergy Verified 11/09/19 10:32 - Social History Does the pt smoke?: No Smoking Status: Never smoker Does the pt drink ETOH?: Yes Does the pt have substance abuse?: No - Immunizations Immunizations are current?: Yes - POLST Patient has POLST: No PD ED PE NORMAL - Vitals Vital signs reviewed: Yes - General General: Alert and oriented X 3, No acute distress, Well developed/nourished - HEENT HEENT: Ears normal, Moist mucous membranes, Pharynx benign - Neck Neck: Supple, no meningeal sign, No adenopathy - Cardiac Cardiac: RRR, No murmur - Respiratory Respiratory: Clear bilaterally, Other (no chestwall tenderness, rash. No spinal area tenderness in thoracic back. ) - Abdomen Abdomen: Soft, Non tender - Back Back: No spinal TTP - Derm Derm: Normal color, Warm and dry, No rash - Extremities Extremities: No tenderness to palpate, No edema, No calf tenderness / cord - Neuro Neuro: Alert and oriented X 3, No motor deficit, Normal speech Results - Vitals Vitals: Vital Signs - 24 hr 11/09/19 11/09/19 10:32 12:46 Temperature 37.1 C 37.0 C Heart Rate 62 52 L Respiratory 18 19 Rate Blood Pressure 138/73 H 128/83 H O2 Saturation 98 98 Oxygen O2 Source Room air - EKG (time done) 11:46 Rate: Rate (enter#) (52) Rhythm: NSR Moroni: Normal Intervals: Normal [place] QRS: Normal Ischemia: Normal ST segments. No: ST elevation c/w ischemia, ST depression - Rads (name of study) chest xray Radiology: Prelim report reviewed (no acute process), See rad report PD MEDICAL DECISION MAKING - ED course Complexity details: reviewed results, considered differential (area of pain and numbness left lateral chest wall. Not particularly tender. Consider nerve irritation (from sleep position?), pinched nerve from back (but no trauma), or even early shingles or such. No signs of cardiopulmonary cause. Consider anxiety as well as he does have history of that. ), d/w patient Departure - Departure Disposition: 01 Home, Self Care Clinical Impression: Chest pain Qualifiers: Chest pain type: precordial pain Qualified Code(s): R07.2 - Precordial pain Condition: Stable Record reviewed to determine appropriate education?: Yes Instructions: ED Chest Pain Atypical Unkn Cause Follow-Up: Wade Vargas MD [Primary Care Provider] - Comments: Tylenol ibuprofen as needed for pains. I do not know the cause of your left- sided pain. Your EKG vital signs and chest x-ray appear normal so no signs of more significant cause. Presume musculoskeletal pain. Discharge Date/Time: 11/09/19 12:47
[2019-11-09] MEDS ORDERED: IBUPROFEN 600 MG TABLET PO STA (11:42)
--- NOTE | 2019-11-09 12:33 | XRAY Report ---
Reason: left chest pain Procedure Date: 11/09/2019 Accession Number: [id number] / [id number] Procedure: XR - Chest 2 View X-Ray CPT Code: 26543 Final Report FULL RESULT: EXAM: CHEST RADIOGRAPHY EXAM DATE: 11/09/2019 11:59 AM. CLINICAL HISTORY: Left chest pain. COMPARISON: CHEST 2 VIEW 09/16/2019 2:09 AM. TECHNIQUE: 2 views. FINDINGS: Lungs/Pleura: No focal opacities evident. No pleural effusion. No pneumothorax. Normal volumes. Mediastinum: Heart and mediastinal contours are unremarkable. Other: None. IMPRESSION: Stable negative 2-view chest radiography. RADIA
[2019-11-09 12:47] VITALS: BP 128/83
== END 2019-11-09 12:47 | disposition home or self-care (01) ==
LOC: ED 10:23
DX: R07.2 Precordial pain (principal); R20.0 Anesthesia of skin; F41.9 Anxiety disorder, unspecified
CPT/HCPCS: 71046; 93005; 99283; 99284; A9270

== ENCOUNTER 2019-12-05 11:09 | Emergency (ER) | payer OTHER ==
[2019-12-05 11:38] LABS: BASOPHILS # (AUTO) 0.1 10^3/uL (0.0-0.1); BASOPHILS % (AUTO) 0.7 %; EOSINOPHILS # (AUTO) 0.2 10^3/uL (0.0-0.7); EOSINOPHILS % (AUTO) 2.3 %; HGB - HEMOGLOBIN 14.6 g/dL (14.0-18.0); LYMPHOCYTES # (AUTO) 3.5 10^3/uL (1.5-3.5); LYMPHOCYTES % (AUTO) 46.1 %; MEAN CORPUSCULAR HEMOGLOBIN 31.1 pg (27.0-31.0); MEAN CORPUSCULAR HGB CONC 34.5 g/dL (32.0-36.0); MEAN PLATELET VOLUME 10.6 fL (7.4-11.4); MONOCYTES # (AUTO) 0.9 10^3/uL (0.0-1.0); MONOCYTES % (AUTO) 11.3 %; NEUTROPHILS % (AUTO) 39.2 %; PLT - PLATELET COUNT 294 10^3/uL (130-450); RED CELL DISTRIBUTION WIDTH 12.2 % (12.0-15.0); WHITE BLOOD COUNT 7.5 x10^3/uL (4.8-10.8)
--- NOTE | 2019-12-05 11:38 | XRAY Report ---
Reason: Chest pain Procedure Date: 12/05/2019 Accession Number: [id number] / [id number] Procedure: XR - Chest 1 View X-Ray CPT Code: 13958 Final Report FULL RESULT: EXAM: CHEST RADIOGRAPHY EXAM DATE: 12/05/2019 11:29 AM. CLINICAL HISTORY: Chest pain with left arm numbness. COMPARISON: CHEST 2 VIEW 11/09/2019 11:52 AM. TECHNIQUE: 1 view. FINDINGS: Lungs/Pleura: No focal opacities evident. No pleural effusion. No pneumothorax. Mediastinum: Within exam limitations, the cardiomediastinal contour is normal. Other: None. IMPRESSION: 1. No acute disease in the chest. RADIA
[2019-12-05 11:53] LABS: ALBUMIN 4.2 g/dL (3.2-5.5); ALBUMIN/GLOBULIN RATIO 1.2 (1.0-2.2); BILIRUBIN,TOTAL 0.7 mg/dL (0.2-1.0); CALCIUM 8.9 mg/dL (8.5-10.3); CREATININE 0.8 mg/dL (0.6-1.2); TOTAL PROTEIN 7.6 g/dL (6.7-8.2)
--- NOTE | 2019-12-05 13:02 | ED Physician Documentation ---
History of Present Illness - Stated complaint Stated Complaint: CHEST TIGHTNESS - Chief complaint Chief Complaint: Cardiac - History obtained from History obtained from: Patient - History of Present Illness Pain level max: 3 Pain level now: 2 Quality: "painful" - Additonal information Additional information: 24-year-old male presents to the emergency department stating that he woke up this morning and developed left arm and leg numbness as well as left-sided chest pain. Nothing makes it better or worse. He states that this has occurred at least once a month for the last 4 to 5 months. Usually last 3 to 4 hours. He states that his left arm was cold today as well. No headache. No family history of any significant medical problems other than hypertension. No early cardiac deaths. No history of aneurysms or dissections. Currently states he still has mild left leg pain. Review of Systems Ten Systems: 10 systems reviewed and negative Constitutional: denies: Fever, Chills Nose: denies: Rhinorrhea / runny nose, Congestion Throat: denies: Sore throat Cardiac: denies: Palpitations Respiratory: denies: Dyspnea, Cough GI: denies: Abdominal Pain, Nausea, Vomiting, Diarrhea Skin: denies: Rash Musculoskeletal: denies: Neck pain, Back pain Neurologic: denies: Focal weakness, Numbness, Confused, Altered mental status, Headache PD PAST MEDICAL HISTORY - Past Medical History Past Medical History: Yes Cardiovascular: None Respiratory: None Neuro: None Endocrine/Autoimmune: None GI: None : Other HEENT: None Psych: Anxiety, Panic attacks Musculoskeletal: None Derm: None - Past Surgical History Past Surgical History: Yes - Present Medications Home Medications: Ambulatory Orders Medication Instructions Recorded Confirmed hydrOXYzine pamoate [Hydroxyzine 25 mg PO BID PRN #12 capsule 06/10/19 12/05/19 Pamoate] - Allergies Allergies/Adverse Reactions: Allergies Allergy/AdvReac Type Severity Reaction Status Date / Time No Known Drug Allergies Allergy Verified 12/05/19 11:17 - Social History Does the pt smoke?: No Smoking Status: Never smoker Does the pt drink ETOH?: Yes Does the pt have substance abuse?: No - Immunizations Immunizations are current?: Yes - POLST Patient has POLST: No PD ED PE NORMAL - Vitals Vital signs reviewed: Yes - General General: Alert and oriented X 3, No acute distress, Well developed/nourished - HEENT HEENT: PERRL, Ears normal, Moist mucous membranes, Pharynx benign - Neck Neck: Supple, no meningeal sign, No adenopathy - Cardiac Cardiac: RRR, Strong equal pulses - Respiratory Respiratory: No respiratory distress, Clear bilaterally - Abdomen Abdomen: Soft, Non tender, Non distended - Derm Derm: Warm and dry - Extremities Extremities: Other (Normal bilateral lower extremity patellar and ankle jerk reflexes. Normal great toe extension bilaterally. 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, No motor deficit, No sensory deficit, Normal speech Eye Opening: Spontaneous Motor: Obeys Commands Verbal: Oriented GCS Score: 15 - Psych Psych: Normal mood, Normal affect Results - Vitals Vitals: Vital Signs - 24 hr 12/05/19 12/05/19 12/05/19 11:18 11:35 15:17 Temperature 37.1 C Heart Rate 62 57 L 56 L Respiratory 18 12 Rate Blood Pressure 146/89 H 133/73 H 117/73 O2 Saturation 96 98 97 12/05/19 16:10 Temperature Heart Rate 69 Respiratory 15 Rate Blood Pressure 133/78 H O2 Saturation 98 Oxygen O2 Source Room air - EKG (time done) 1125 Rate: Rate (enter#) (71) Rhythm: NSR Philip: Normal Intervals: Normal [place] QRS: Normal Ischemia: Normal ST segments - Labs Labs: Laboratory Tests 12/05/19 12/05/19 12/05/19 11:35 11:35 11:35 WBC 7.5 RBC 4.70 Hgb 14.6 Hct 42.3 MCV 90.0 MCH 31.1 H MCHC 34.5 RDW 12.2 Plt Count 294 MPV 10.6 Neut # (Auto) 3.0 Lymph # (Auto) 3.5 Spencer # (Auto) 0.9 Eos # (Auto) 0.2 Baso # (Auto) 0.1 Absolute Nucleated RBC 0.00 Nucleated RBC % 0.0 Sodium 138 Potassium 3.5 Chloride 108 Carbon Dioxide 24 Anion Gap 6.0 BUN 11 Creatinine 0.8 Estimated GFR (MDRD) 118 Glucose 101 H Calcium 8.9 Total Bilirubin 0.7 AST 21 ALT 17 Alkaline Phosphatase 87 Troponin I High Sens 5.4 Total Protein 7.6 Albumin 4.2 Globulin 3.4 Albumin/Globulin Ratio 1.2 Lipase 24 - Rads (name of study) cxr Radiology: Prelim report reviewed, EMP read contemporaneously, See rad report (normal) Ct angio chest/abd/pelvis Radiology: Prelim report reviewed, EMP read contemporaneously, See rad report (1. No aortic aneurysm or dissection. No pulmonary embolus. No alternate acute process identified to explain chest pressure. 2. Solitary 4 mm subpleural nodule in the posterior right lower lobe. Recommend correlation with clinical history given patient age less than 35 years. 1. No aortic aneurysm or dissection. No pulmonary embolus. No alternate acute process identified to explain chest pressure. 2. Solitary 4 mm subpleural nodule in the posterior right lower lobe. Recommend correlation with clinical history given patient age less than 35 years. 1. No aortic aneurysm or dissection. No pulmonary embolus. No alternate acute process identified to explain chest pressure. 2. Solitary 4 mm subpleural nodule in the posterior right lower lobe. Recommend correlation with clinical history given patient age less than 35 years. 1. No aneurysm or dissection. ) PD MEDICAL DECISION MAKING - ED course Complexity details: reviewed results, re-evaluated patient, considered differential (No ST elevation [place], no aortic dissection, no PE, no tension pneumothorax, no aortic aneurysm), d/w patient ED course: 24-year-old male presents to the emergency department with atypical chest pain and left arm and leg pain/weakness. No evidence of dissection. No evidence of PE. No evidence of acute coronary syndrome. We will have him follow-up with his doctor for further care. Patient is currently asymptomatic in the emergency department. Patient counseled regarding signs and symptoms for which I believe and urgent re-evaluation would be necessary. Patient with good understanding of and agreement to plan and is comfortable going home at this time This document was made in part using voice recognition software. While efforts are made to proofread this document, sound alike and grammatical errors may occur. NIH stroke scale of 0 Departure - Departure Disposition: 01 Home, Self Care Clinical Impression: Paresthesia Chest pain Qualifiers: Chest pain type: unspecified Qualified Code(s): R07.9 - Chest pain, unspecified Condition: Good Instructions: ED Chest Pain Atypical Unkn Cause, ED Paraesthesias Follow-Up: Wade Vargas MD [Primary Care Provider] - Within 1 week Comments: The cause of your symptoms is unclear today. Your heart tests appear normal and your imaging is normal. You do not have any problems with your aorta. Follow- up with your doctor for further care. There is no evidence of blood clots either. Discharge Date/Time: 12/05/19 16:19
[2019-12-05] MEDS ORDERED: IOVERSOL 320 100 ML VIAL IVP ONE ×2 (13:41→14:10)
--- NOTE | 2019-12-05 15:37 | CT Report ---
Reason: CP, numbness L arm and leg, aorta scan please Procedure Date: 12/05/2019 Accession Number: [id number] / [id number] Procedure: CT - ANGIO ABDOMEN/PELVIS W CPT Code: Final Report FULL RESULT: EXAM: CT ANGIOGRAM ABDOMEN AND PELVIS WITH CONTRAST EXAM DATE: 12/05/2019 02:08 PM. CLINICAL HISTORY: Chest pain, left upper limb and leg numbness. COMPARISONS: ABDOMEN/PELVIS W/ 08/06/2019 12:54 AM. TECHNIQUE: Routine helical CT angiogram imaging was performed through the abdomen and pelvis in the arterial phase. IV contrast: OPTIRAY 320. Enteric contrast: No. Reconstructions: Coronal, sagittal, and 3D MIP reconstructions. In accordance with CT protocol optimization, one or more of the following dose reduction techniques were utilized for this exam: automated exposure control, adjustment of mA and/or KV based on patient size, or use of iterative reconstructive technique. FINDINGS: Vasculature: Normal. No aneurysm, dissection, or significant atherosclerotic disease of the abdominal aorta and iliac arteries. The visualized mesenteric and solid organ vascular structures are also within normal limits. Lung Bases: Normal. Abdominal Solid Organs: Prior appendectomy. The liver, spleen, gallbladder, adrenal glands and kidneys appear unremarkable. Peritoneal Cavity: Normal. No free fluid, free air, or acute inflammatory process. Pelvic Organs: Normal. The bladder and visualized pelvic organs are within normal limits. Bones: No significant abnormality. Other: None. IMPRESSION: 1. No aneurysm or dissection. RAD[facility]
[2019-12-05 16:10] VITALS: BP 133/78
--- NOTE | 2019-12-05 16:10 | CT Report ---
Reason: CP, numbness L arm and leg, aorta scan please Procedure Date: 12/05/2019 Accession Number: [id number] / [id number] Procedure: CT - ANGIO CHEST W/WO CPT Code: Final Report FULL RESULT: EXAM: CT ANGIOGRAM CHEST EXAM DATE: 12/05/2019 02:08 PM. CLINICAL HISTORY: Chest pressure. Left arm/leg numbness. Evaluate aorta. COMPARISON: CHEST 1 VIEW 12/05/2019 11:24 AM. TECHNIQUE: Routine helical imaging was performed through the chest prior to contrast administration and during the arterial phase. IV Contrast: 100 mL Optiray 320. Reconstructions: Sagittal and coronal. Sagittal, coronal, and axial 3D MIP reformats. In accordance with CT protocol optimization, one or more of the following dose reduction techniques were utilized for this exam: automated exposure control, adjustment of mA and/or KV based on patient size, or use of iterative reconstructive technique. FINDINGS: Vascular Structures: No aneurysm, dissection, or other psychotic disease of the aorta or its visualized branches. The visualized pulmonary arteries are within normal limits, with no pulmonary embolus seen through the subsegmental arteries. Lungs/Pleura: 4 mm subpleural nodule in the posterior right lower lobe. 4/193). No focal infiltrate, pleural effusion, or pneumothorax. Mediastinum: Heart size is normal. No pericardial effusion. No adenopathy. Upper Abdomen: Unremarkable. Bones: Normal. Other: None. IMPRESSION: 1. No aortic aneurysm or dissection. No pulmonary embolus. No alternate acute process identified to explain chest pressure. 2. Solitary 4 mm subpleural nodule in the posterior right lower lobe. Recommend correlation with clinical history given patient age less than 35 years. RADIA
== END 2019-12-05 16:19 | disposition home or self-care (01) ==
LOC: ED 11:09
DX: R20.2 Paresthesia of skin (principal); R07.9 Chest pain, unspecified
CPT/HCPCS: 36415; 71045; 71275; 74174; 80053; 83690; 84484; 85025; 93005; 99284; Q9967

== ENCOUNTER 2020-01-21 18:36 | Emergency (ER) | payer OTHER ==
--- NOTE | 2020-01-21 18:55 | ED Physician Documentation ---
PD HPI LOWER EXT INJURY - Stated complaint Stated Complaint: L THIGH PAIN - Chief complaint Chief Complaint: Ext Problem - History obtained from History obtained from: Patient - History of Present Illness PD HPI LOW EXT INJURY LOCATION: Left (24-year-old gentleman developed left hamstring pain about 3 days ago. May be related to a hike but he does not think it was a stressful hike. Every few hours he also has some cramps in his left calf. No swelling. No history of recent travel. This is never happened before. No personal family history of DVT or PE, but DVT is his specific concern.) Review of Systems Constitutional: reports: Reviewed and negative Cardiac: reports: Reviewed and negative Respiratory: reports: Reviewed and negative GI: reports: Reviewed and negative PD PAST MEDICAL HISTORY - Past Medical History Cardiovascular: None Respiratory: None Neuro: None Endocrine/Autoimmune: None GI: None : Other HEENT: None Psych: Anxiety, Panic attacks Musculoskeletal: None Derm: None - Past Surgical History Past Surgical History: Yes - Present Medications Home Medications: Ambulatory Orders Medication Instructions Recorded Confirmed hydrOXYzine pamoate [Hydroxyzine 25 mg PO BID PRN #12 capsule 06/10/19 12/05/19 Pamoate] - Allergies Allergies/Adverse Reactions: Allergies Allergy/AdvReac Type Severity Reaction Status Date / Time No Known Drug Allergies Allergy Verified 12/05/19 11:17 - Social History Does the pt smoke?: No Smoking Status: Never smoker Does the pt drink ETOH?: Yes Does the pt have substance abuse?: No - Immunizations Immunizations are current?: Yes - POLST Patient has POLST: No PD ED PE NORMAL - Vitals Vital signs reviewed: Yes - General General: Alert and oriented X 3, No acute distress - Abdomen Abdomen: Soft, Non tender - Extremities Extremities: Other (Left leg is nontender with bounding pedal pulses, negative Homans sign, no swelling. No specific tenderness anywhere.) - Neuro Neuro: Alert and oriented X 3, Normal speech Results - Vitals Vitals: Vital Signs - 24 hr 01/21/20 01/21/20 01/21/20 18:44 18:57 20:05 Temperature 37.3 C 37.2 C Heart Rate 76 76 62 Respiratory 16 16 62 H Rate Blood Pressure 145/82 H 143/90 H 136/82 H O2 Saturation 97 98 98 Oxygen O2 Source Room air - Rads (name of study) LLE duplex Radiology: EMP read contemporaneously (neg) Departure - Departure Disposition: 01 Home, Self Care Clinical Impression: Left leg pain Condition: Good Record reviewed to determine appropriate education?: Yes Instructions: ED Strain Muscle Ext Comments: Ultrasound today is negative for any signs of clot or deep vein thrombosis. Ret urn for new or worsening symptoms. Discharge Date/Time: 01/21/20 20:10
--- NOTE | 2020-01-21 19:50 | Ultrasound Report ---
Reason: leg pain Procedure Date: 01/21/2020 Accession Number: [id number] / [id number] Procedure: US - Duplex Ext Veins Left CPT Code: Final Report FULL RESULT: EXAM: LEFT LOWER EXTREMITY VENOUS ULTRASOUND EXAM DATE: 01/21/2020 07:42 PM. CLINICAL HISTORY: Leg pain. COMPARISON: None. TECHNIQUE: Real-time sonographic vascular imaging was performed by the dispatch clerk through the lower extremity utilizing both color-flow and Doppler spectral analysis. Multiple lead generation representative static images were saved for review. FINDINGS: Common Femoral Vein (CFV): Normal. CFV-GSV Junction: Normal. Profunda Femoral Vein (PFV): Normal. Femoral Vein (FV) Prox: Normal. Femoral Vein (FV) Mid: Normal. Femoral Vein (FV) Dist: Normal. Popliteal Vein: Normal. Posterior Tibial Veins: Normal. Peroneal Veins: Normal. Contralateral Side CFV: Normal. Other: None. IMPRESSION: No evidence for deep venous thrombosis. [facility]
[2020-01-21 20:35] VITALS: BP 136/82
== END 2020-01-21 20:10 | disposition home or self-care (01) ==
LOC: ED 18:36
DX: M79.662 Pain in left lower leg (principal)
CPT/HCPCS: 99283; 99284